=== PATIENT | male | born 1995 | race Caucasian/White ===

== ENCOUNTER 2024-07-01 08:35 | Observation (INO) ==
--- NOTE | 2024-07-01 08:46 | Emergency Department Note ---
History of Present Illness General Chief complaint: Abdominal Pain Stated complaint: ABD PAIN Time Seen by Provider: 07/01/24 08:44 History of Present Illness Maximum Pain Intensity: 9 This is a 28-year-old male that presents to the emergency department via private vehicle with complaints of "right-sided abdominal pain". 4 AM the patient awoke with abrupt onset right-sided abdominal pain. He notes the pain is mainly right upper quadrant but also right flank area. No history of similar. No trauma. No injury. No chest pain. No shortness of breath. Patient notes history of ADD currently medicated. He does take testosterone 500 mg and did use an Anavar preworkout recently. No known drug allergies. No fever. No vomiting. No blood in the stool. Patient otherwise denies any pertinent past medical history, surgeries or allergies. Current pain 05/30. Home Medications Medication Instructions Recorded Confirmed Type Anavar 1 tab PO DIRECTED PRN Other 07/01/24 07/01/24 History dexmethylphenidate 30 mg 30 mg PO QAM 07/01/24 07/01/24 History capsule,extended release [id number] (Focalin XR) testosterone cypionate 1 dose miscellaneous DIRECTED 07/01/24 07/01/24 History PRN Other Allergies Allergy/AdvReac Type Severity Reaction Status Date / Time bee venom protein (honey bee) Allergy Severe Anaphylaxis Unverified 07/01/24 11:39 latex Allergy Intermediate Hives Unverified 07/01/24 11:39 Past Med/Surg History Problem List (Updated 07/01/24 @ 14:32 by Bennie Lozano MD) RUQ pain Epigastric pain Right sided abdominal pain (Acute) Social History Smoking Status: Current every day smoker Second Hand Exposure: Yes; Do You Dip or Chew Tobacco: No; Tobacco Cessation Education Requested by Patient: No Hx Alcohol Use: Yes Hx Substance Use: Yes Last Used Substance: Hours (ago) Substance Use Type Other:: Testosterone shots. Preferred Language: Estonian Communication Ability: Effective Environmental Education Specialist Required: No Beliefs That Will Affect Care: None Current Living Situation: Alone Other Information That Helps Us Care for You: No Feels Safe at Home: Yes Safety Concerns: Feels Safe At This Time Assistive Devices: None Review of Systems A total of 10 systems reviewed and were otherwise negative Physical Exam Vital Signs Vital Signs - 24 hr 07/01/24 08:42 07/01/24 09:08 07/01/24 09:09 Temperature 36.9 C Temperature Source Temporal Artery Scan Pulse Rate 57 L 67 63 Pulse Rate [Apical] Respiratory Rate 19 Respiratory Effort / Characteristics Non-Labored Spontaneous Respiratory Depth Normal Blood Pressure 137/74 Blood Pressure [Right Arm] Blood Pressure Mean 95 Blood Pressure Mean [Right Arm] Blood Pressure Position Sitting Pulse Oximetry 99 95 Oxygen Delivery Method Room Air Room Air Sepsis Recent Fever Within 48 Hours No Sepsis New/Unexplained Change in Mental Status No Sepsis Action Taken by Nursing No Action Required 07/01/24 11:00 Temperature Temperature Source Pulse Rate Pulse Rate [Apical] 49 L Respiratory Rate 16 Respiratory Effort / Characteristics Respiratory Depth Blood Pressure Blood Pressure [Right Arm] 136/60 Blood Pressure Mean Blood Pressure Mean [Right Arm] 85 Blood Pressure Position Pulse Oximetry 97 Oxygen Delivery Method Room Air Sepsis Recent Fever Within 48 Hours Sepsis New/Unexplained Change in Mental Status Sepsis Action Taken by Nursing VITAL SIGNS - Vital signs and nursing notes were reviewed. Stable and afebrile. GENERAL -28-year-old male appearing his stated age who is in no acute distress but appears to be in pain. Communicates well with provider and answers questions appropriately. SKIN - Without rashes. No meningeal or petechial rash. HEAD - NC/AT. EYES - PERRL with EOMI bilaterally. Sclera anicteric. NECK - Neck with FROM. No nuchal rigidity. LUNGS - Chest wall symmetric without accessory muscle use, intercostals retractions, or central cyanosis. Normal vesicular breath sounds CTA B/L. No wheezes, rales, or rhonchi appreciated. CARDIAC - RRR. No murmur, rubs, or gallops appreciated. ABDOMEN - Abdominal contour normal without pulsations or visible masses. BS normoactive all four quadrants. R sided abd ttp noted. EXTREMITIES - No clubbing or peripheral cyanosis. +5/5 strength noted in UE/LE bilaterally. NEUROLOGIC - Cranial nerves grossly intact. Sensory intact to light touch throughout. PSYCH - A&O, and cooperates fully with examiner. Pt is very pleasant and interacts well with examiner. Course Administered Medications Hydromorphone HCl (Hydromorphone Inj 0.5 Mg/0.5 Ml Syr) 0.5 mg IV Q4H PRN PRN Reason: severe pain Stop: 07/15/24 13:51 Last Admin: 07/01/24 14:35 Dose: 0.5 mg Documented By: DANA Pantoprazole Sodium 40 mg/ (Syringe) 10 mls @ 5 mls/min IV BID IFTIKHAR Stop: 07/31/24 12:59 Last Admin: 07/01/24 14:00 Dose: 5 mls/min Documented By: DANA Sodium Chloride (Nss) 1,000 mls @ 100 mls/hr IV .Q10H IFTIKHAR Stop: 07/31/24 13:51 Last Admin: 07/01/24 14:35 Dose: 100 mls/hr Documented By: DANA Discontinued Medications Hydromorphone HCl (Hydromorphone Inj 0.5 Mg/0.5 Ml Syr) 0.5 mg IV NOW STA Stop: 07/01/24 10:11 Last Admin: 07/01/24 10:22 Dose: Not Given Documented By: JAYCOB Hydromorphone HCl (Hydromorphone Inj 0.5 Mg/0.5 Ml Syr) 0.5 mg IV NOW STA Stop: 07/01/24 12:31 Last Admin: 07/01/24 12:38 Dose: 0.5 mg Documented By: VERONICA Acetaminophen (Ofirmev) 1,000 mg in 100 mls @ 400 mls/hr IV NOW STA Stop: 07/01/24 12:44 Last Infusion: 07/01/24 13:07 Dose: Infused Documented By: Admin: 07/01/24 12:38 Dose: 400 mls/hr Documented By: VERONICA Ioversol (Optiray 320 100ml) 94 ml IV ONCE ONE Stop: 07/01/24 09:42 Last Admin: 07/01/24 09:42 Dose: 94 ml Documented By: PHILIP Ketorolac Tromethamine (Ketorolac Tromethamine 15 Mg/Ml Vial) 15 mg IV NOW STA Stop: 07/01/24 11:29 Last Admin: 07/01/24 11:39 Dose: 15 mg Documented By: VERONICA Morphine Sulfate (Morphine Sulfate 4 Mg/Ml 1 Ml Carp\\Vial) 4 mg IV NOW STA Stop: 07/01/24 08:49 Last Admin: 07/01/24 09:01 Dose: 4 mg Documented By: JAYCOB Morphine Sulfate (Morphine Sulfate 4 Mg/Ml 1 Ml Carp\\Vial) 4 mg IV NOW STA Stop: 07/01/24 10:20 Last Admin: 07/01/24 10:22 Dose: 4 mg Documented By: JAYCOB Ondansetron HCl (Ondansetron Inj 2 Mg/Ml 2 Ml Vial) 4 mg IV NOW STA Stop: 07/01/24 08:49 Last Admin: 07/01/24 09:01 Dose: 4 mg Documented By: JAYCOB Medical Decision Making Laboratory Data 07/01/24 09:06 07/01/24 09:06 Lab Results 07/01/24 07/01/24 Range/Units 09:06 10:58 WBC 10.81 H (4.8-10.8) K/ul RBC 5.97 (4.70-6.10) M/uL Hgb 17.4 (14.0-18.0) g/dl Hct 52.5 H (42.0-52.0) % MCV 87.9 (80.0-100.0) fL MCH 29.1 (25.0-34.0) pg MCHC 33.1 (32.0-36.0) g/dL RDW Std Deviation 47.4 H (36.4-46.3) fL RDW Coeff of Lucy 14.8 H (11.5-14.5) % Plt Count 288 (130-400) K/uL MPV 9.2 L (9.4-12.4) fL Immature Gran % (Auto) 0.2 % Neut % (Auto) 71.5 % Lymph % (Auto) 18.9 % [place] % (Auto) 6.2 % Eos % (Auto) 2.9 % Baso % (Auto) 0.3 % Neut # (Auto) 7.74 H (1.40-6.50) K/uL Lymph # (Auto) 2.04 (1.20-3.40) K/uL [place] # (Auto) 0.67 H (0.11-0.59) K/uL Eos # (Auto) 0.31 (0.00-0.50) K/uL Baso # (Auto) 0.03 (0.00-0.20) K/uL Immature Gran # (Auto) 0.02 (0.01-0.20) K/uL Sodium 139 (136-145) mmol/L Potassium 4.9 (3.5-5.1) mmol/L Chloride 104 (98-107) mmol/L Carbon Dioxide 29 (21-32) mmol/L Anion Gap 6 (3-11) BUN 26 H (6-23) mg/dl Creatinine 0.98 (0.6-1.4) mg/dl Est Cr Clr Drug Dosing 115.9 ml/min eGFR 107.72 BUN/Creatinine Ratio 26.5 H (10-20) Glucose 104 H (70-99(Fasting)) mg/dl Calcium 9.2 (8.6-10.3) mg/dl Total Bilirubin 0.5 (0.2-1.0) mg/dl AST 30 (13-39) U/L ALT 24 (7-52) U/L Alkaline Phosphatase 53 (34-104) U/L Total Protein 7.4 (6.0-8.3) gm/dl Albumin 4.5 (3.4-5.0) gm/dl Globulin 2.9 (2.5-4.0) gm/dl Albumin/Globulin Ratio 1.6 (0.9-2) Lipase 20 (11-82) U/L Urine Color Yellow Urine Appearance Clear (Clear) Urine pH 6.5 (4.5-7.5) Ur Specific Hay > 1.045 H (1.000-1.030) Urine Protein 1+ H (Negative) Urine Glucose (UA) Trace H (Negative) Urine Ketones Trace H (Negative) Urine Blood Negative (Negative) Urine Nitrite Negative (Negative) Urine Bilirubin Negative (Negative) Urine Urobilinogen Negative (Negative) Ur Leukocyte Esterase Negative (Negative) Urine WBC (Auto) 0-5 (0-5) /hpf Urine RBC (Auto) >20 H (0-2) /hpf U Hyaline Cast (Auto) 0-2 (0-2) /lpf U Epithel Cells (Auto) 0-2 (0-2) /hpf Urine Bacteria (Auto) None Seen (None Seen) Imaging Data Radiologist's Impression: Abdomen/Pelvis CT 07/01/24 08:[address] WITH IV CONTRAST CT DOSE: 1114.31 mGy.cm HISTORY: Acute generalized abdominal pain abdominal pain, abrupt onset 4am TECHNIQUE: Multiaxial CT images of the abdomen and pelvis were performed following the IV administration of 94 cc of Optiray, A dose lowering technique was utilized adhering to the principles of ALARA. COMPARISON STUDY: None. FINDINGS: The lung bases are clear. The liver, spleen, gallbladder, pancreas, kidneys, and adrenal glands are within normal limits. Noninflamed appendix. There are a few scattered mid abdominal small bowel air-fluid levels. Additional nondilated fluid-filled loops of large bowel are also noted. No bowel wall thickening or obstruction. The pelvic organs are unremarkable. 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 No suspicious lytic or blastic osseous lesions. IMPRESSION: 1. No bowel obstruction or bowel wall thickening. 2. Normal appendix. 3. 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 ACT 112: Negative or not required by law. The above report was generated using voice recognition software. It may contain grammatical, syntax or spelling errors. Electronically signed by: Yuan Cochran M.D. 07/01/2024 10:20 AM Gallbladder Ultrasound 07/01/24 10:47 ABDOMINAL ULTRASOUND, RIGHT UPPER QUADRANT HISTORY: Acute right upper quadrant abdominal pain RUQ abd pain. COMPARISON: CT same day FINDINGS: Pancreas: The pancreas demonstrates a normal echotexture. Liver: Unremarkable. Gallbladder: No gallbladder wall thickening. No gallstones. CBD: 4 mm Right kidney: No hydronephrosis. IMPRESSION: No significant abnormality identified within the right upper quadrant. ACT 112: Negative or not required by law. Electronically signed by: Yuan Cocrhan M.D. 07/01/2024 11:39 AM Chest X-Ray 07/01/24 10:50 XR chest 1V portable HISTORY: 28 years-old Male RUQ abd pain acute right upper quadrant abdominal pain COMPARISON: None TECHNIQUE: AP view the chest FINDINGS: Cardiomediastinal and hilar silhouettes are within normal limits. No pneumothorax, pleural effusion or airspace consolidation. The bones appear normal. IMPRESSION: Normal exam. ACT 112: Negative or not required by law. The above report was generated using voice recognition software. It may contain grammatical, syntax or spelling errors. Electronically signed by: Yuan Cochran M.D. 07/01/2024 11:13 AM [facility] Narrative Patient was seen and evaluated as above in room B03b. Review was performed of triage nursing notes and vital signs. I did review pertinent previous visits and patient history. After obtaining a thorough history and physical examination the above work up was performed. Patient presents to us today for evaluation of right sided abdominal pain. Current pain 9/10. IV access with established. Labs were drawn. CT scan of the abdomen/pelvis was ordered. Patient medicated with IV morphine for pain, Zofran for nausea. CT scan results as above. This was essentially negative for acute process. Gallbladder ultrasound was then performed and was essentially negative. Labs reveal mild leukocytosis. No concerning anemia. No emergent metabolic disturbance. Lipase within normal range. Urinalysis reveals some red cells but no infection. Patient's pain continued despite IV analgesia here. At this time we will proceed with further evaluation and management in the inpatient setting. Please refer to further documentation regarding his stay. GCS: 15 In the evaluation and treatment of this patient the following differential diagnoses were entertained: Diverticulitis, acute cholecystitis, kidney stone, gastritis, among others. Impression & Plan Right sided abdominal pain Discharge Plan Visit Data Chief Complaint: Abdominal Pain Stated Complaint: ABD PAIN ED Provider: Jhonatan Garcia ED Midlevel Provider: Dejan Brewster Discharge Problem: Right sided abdominal pain Patient Disposition: Admitted As Inpatient Condition: Good Discharge Instructions Interventions: ED Discharge Assessment Last Done: 07/01/24 13:35
[2024-07-01] MEDS ORDERED: ADVANCED PROBIOTIC 625 MG CAPSULE PO SCH ×2 (09:00→18:30)
[2024-07-01] MEDS: MoRPHine SULFATE 4 MG/ML 1 ML CARP\\VIAL IV STA ×2 (09:01→10:22)
[2024-07-01] MEDS: ONDANSETRON INJ 2 MG/ML 2 ML VIAL IV STA (09:01)
[2024-07-01 09:22] LABS: Basophils # (auto) 0.03 K/uL (0.00-0.20); Basophils % (auto) 0.3 %; Eosinophils # (auto) 0.31 K/uL (0.00-0.50); Eosinophils % (auto) 2.9 %; Hematocrit (blood only) 52.5 % (42.0-52.0); Hemoglobin 17.4 g/dl (14.0-18.0); Immature Granulocytes # (auto) 0.02 K/uL (0.01-0.20); Immature Granulocytes % (auto) 0.2 %; Lymphocytes # (auto) 2.04 K/uL (1.20-3.40); Lymphocytes % (auto) 18.9 %; Mean Corpuscular Hemoglobin 29.1 pg (25.0-34.0); Mean Corpuscular Hgb Conc 33.1 g/dL (32.0-36.0); Mean Corpuscular Volume 87.9 fL (80.0-100.0); Mean Platelet Volume 9.2 fL (9.4-12.4); Monocytes # (auto) 0.67 K/uL (0.11-0.59); Monocytes % (auto) 6.2 %; Neutrophils # (auto) 7.74 K/uL (1.40-6.50); Neutrophils % (auto) 71.5 %; Platelet Count 288 K/uL (130-400); RDW Coefficient of Variation 14.8 % (11.5-14.5); RDW Standard Deviation 47.4 fL (36.4-46.3); Red Blood Count 5.97 M/uL (4.70-6.10); White Blood Count 10.81 K/ul (4.8-10.8)
[2024-07-01 09:34] LABS: Albumin Globulin Ratio 1.6 (0.9-2); Albumin Level 4.5 gm/dl (3.4-5.0); BUN Creatinine Ratio 26.5 (10-20); Bilirubin,Total 0.5 mg/dl (0.2-1.0); Calcium 9.2 mg/dl (8.6-10.3); Creatinine Clr Calc Pharmacy 115.9 ml/min; Globulin 2.9 gm/dl (2.5-4.0); Potassium 4.9 mmol/L (3.5-5.1); Total Protein 7.4 gm/dl (6.0-8.3)
[2024-07-01] MEDS: OPTIRAY 320 100ml IV ONE (09:42)
[2024-07-01] MEDS: HYDROmorphone INJ 0.5 MG/0.5 ML SYR IV STA ×2 (10:22→12:38)
--- NOTE | 2024-07-01 10:22 | CT Scan Report ---
ABDOMEN AND PELVIS CT WITH IV CONTRAST CT DOSE: 1114.31 mGy.cm HISTORY: Acute generalized abdominal pain abdominal pain, abrupt onset 4am TECHNIQUE: Multiaxial CT images of the abdomen and pelvis were performed following the IV administrat ion of 94 cc of Optiray, A dose lowering technique was utilized adhering to the principles of ALARA. COMPARISON STUDY: None. FINDINGS: The lung bases are clear. The liver, spleen, gallbladder, pancreas, kidneys, and adrenal gl ands are within normal limits. Noninflamed appendix. There are a few scattered mid abdominal small serina wel air-fluid levels. Additional nondilated fluid-filled loops of large bowel are also noted. No isrrael l wall thickening or obstruction. The pelvic organs are unremarkable. 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 No suspicious lytic or blastic osseous lesions. IMPRESSION: 1. No bowel obstruction or bowel wall thickening. 2. Normal appendix. 3. 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 ACT 112: Negative or not required by law. The above report was generated using voice recognition software. It may contain grammatical, syntax o r spelling errors. Electronically signed by: Yuan Cochran M.D. 07/01/2024 10:20 AM
--- NOTE | 2024-07-01 11:14 | XRay Report ---
XR chest 1V portable HISTORY: 28 years-old Male RUQ abd pain acute right upper quadrant abdominal pain COMPARISON: None TECHNIQUE: AP view the chest FINDINGS: Cardiomediastinal and hilar silhouettes are within normal limits. No pneumothorax, pleural effusion o r airspace consolidation. The bones appear normal. IMPRESSION: Normal exam. ACT 112: Negative or not required by law. The above report was generated using voice recognition software. It may contain grammatical, syntax o r spelling errors. Electronically signed by: Yuan Cochran M.D. 07/01/2024 11:13 AM
[2024-07-01 11:26] LABS: Appearance Urine Clear (Clear); Bacteria Urine Automated None Seen (None Seen); Bilirubin Urine Negative (Negative); Blood Urine Negative (Negative); Cast Urine Automated 0-2 /lpf (0-2); Color Urine Yellow; Epithelial Cell Urine Auto 0-2 /hpf (0-2); Glucose Urine UA Trace (Negative); Ketones Urine Trace (Negative); Leukocyte Esterase Urine Negative (Negative); Nitrite Urine Negative (Negative); Protein Urine 1+ (Negative); RBC Urine Automated >20 /hpf (0-2); Specific Gravity Urine > 1.045 (1.000-1.030); Urobilinogen Urine Negative (Negative); WBC Urine Automated 0-5 /hpf (0-5); pH Urine 6.5 (4.5-7.5)
[2024-07-01] MEDS: KETOROLAC TROMETHAMINE 15 MG/ML VIAL IV STA (11:39)
--- NOTE | 2024-07-01 11:40 | Ultrasound Report ---
ABDOMINAL ULTRASOUND, RIGHT UPPER QUADRANT HISTORY: Acute right upper quadrant abdominal pain RUQ abd pain. COMPARISON: CT same day FINDINGS: Pancreas: The pancreas demonstrates a normal echotexture. Liver: Unremarkable. Gallbladder: No gallbladder wall thickening. No gallstones. CBD: 4 mm Right kidney: No hydronephrosis. IMPRESSION: No significant abnormality identified within the right upper quadrant. ACT 112: Negative or not required by law. Electronically signed by: Yuan Cochran M.D. 07/01/2024 11:39 AM
[2024-07-01] MEDS: ACETAMINOPHEN 1,000 MG/100 ML VIAL IV STA (12:38)
[2024-07-01] MEDS ORDERED: ONDANSETRON INJ 2 MG/ML 2 ML VIAL IV PRN (13:52)
[2024-07-01] MEDS ORDERED: ACETAMINOPHEN 1,000 MG/100 ML VIAL IV PRN (13:52)
[2024-07-01] MEDS: PANTOprazole 40 MG in SYRINGE 0 ML IV SCH (14:00)
[2024-07-01] MEDS: HYDROmorphone INJ 0.5 MG/0.5 ML SYR IV PRN (14:35)
[2024-07-01] MEDS: SODIUM CHLORIDE 0.9% 1,000 ML IV SCH (14:35)
--- NOTE | 2024-07-01 14:35 | History & Physical Report ---
Date of Service July 01, 2024 Assessment & Plan (1) Epigastric pain: (2) RUQ pain: Plan: 28 year old male with history of ADD, GERD presenting with severe epigastric, RUQ pain which started at 4 am this morning. EPIGASTRIC, RUQ PAIN unclear etiology (+) tenderness on epigastric and RUQ LFTs, Lipase normal CT abd/pelvis, GB US: unrevealing required multiple doses of Morphine and Dilaudid at the ER, minimal relief r/o Acute Cholecystits? HIDA scan NPO, IV fluids General Surgery consult Gastritis, Peptic Ulcer Disease? has history of GERD denies frequent NSAID use Protonix 40mg IV BID GI consult from prolonged Cannabis use? if pain continues and negative work up, will consider Droperidol IV for now Dilauid 0.5mg IV q4h prn, Ofirmev 1g q8h PRN Passed Kidney stone? UA (+) RBCs, protein no history of Nephrolithiasis will need repeat UA check Lactic acid to r/o Mesenteric Ischemia check D dimer to r/o PE History of ADD continue Dexmethylphenidate GERD on Prilosec at home Protonix IV for now Other medications: on Testosterone, Anavar for weightlifting- no prescribed by MD as per patient DVT prophylaxis SCDs for now in light of possible procedures Full Code Disposition lives at home change to admit status if staying for >24 hours permission obtained from patient if his grandmother can stay at the bedside for history, PE and evaluation, patient agreed plan of care discussed with patient and his gradnmother in detail and at length all questions answered they are understanding, agreeable, comfortable with the plan of care Admission and Anticipated Discharge Date Admission Date: July 01, 2024 History of Present Illness Chief Complaint: 28 year old male with history of ADD, GERD presenting with severe epigastric, RUQ pain which started at 4 am this morning. Patient was doing fine until yesterday when he started to be feel fatigued. This morning around 4am, patient developed severe epigastric pain- pressure, radiating to RUQ and central abdomen. No associated nausea, fever/chills. Reports daily BMs, no melena, hematochezia No urinary symptoms, hematuria Patient takes Dexmethylphenidate for ADD. He has been taking testosterone for 4 months, and Anavar for 2 weeks- not prescribed by MD. He also smokes marijuana daily for many years. At the ER, patient noted to have stable VS. LFTs unremarkable Lipase normal CT abd/pelvis also negative for obstruction, GB pathology GB US: no signs of acute cholecystitis CXR: unremarkable He has required multiple doses of Morphine and Dilaudid with no improvement of symptoms. On exam, patient still reports severe epigastric, RUQ pain but no active nausea. no chest pain, dyspnea, palpitations, dizziness Primary Care Provider: Antonio Ng MD 28 year old male with history of ADD, GERD presenting with severe epigastric, RUQ pain which at 4 am this morning. Patient was doing fine until yesterday when he started to be feel fatigued. This morning around 4am, patient developed severe epigastric pain- pressure, radiating to RUQ and central abdomen. No associated nausea, fever/chills. Reports daily BMs, no melena, hematochezia No urinary symptoms, hematuria Patient takes Dexmethylphenidate for ADD. He has been taking testosterone for 4 months, and Anavar for 2 weeks- not prescribed by MD. He also smokes marijuana daily for many years. At the ER, patient noted to have stable VS. LFTs unremarkable Lipase normal CT abd/pelvis also negative for obstruction, GB pathology GB US: no signs of acute cholecystitis CXR: unremarkable He has required multiple doses of Morphine and Dilaudid with no improvement of symptoms. On exam, patient still reports severe epigastric, RUQ pain but no active nausea. no chest pain, dyspnea, palpitations, dizziness Allergies Allergy/AdvReac Type Severity Reaction Status Date / Time bee venom protein (honey bee) Allergy Severe Anaphylaxis Unverified 07/01/24 11:39 latex Allergy Intermediate Hives Unverified 07/01/24 11:39 Home Medications Medication Instructions Recorded Confirmed Type Anavar 1 tab PO DIRECTED PRN Other 07/01/24 07/01/24 History dexmethylphenidate 30 mg 30 mg PO QAM 07/01/24 07/01/24 History capsule,extended release [id number] (Focalin XR) testosterone cypionate 1 dose miscellaneous DIRECTED 07/01/24 07/01/24 History PRN Other Past Med/Surg History Problem List (Updated 07/01/24 @ 14:32 by Bennie Lozano MD) RUQ pain Epigastric pain Right sided abdominal pain (Acute) Social History Smoking Status: Current every day smoker Second Hand Exposure: Yes; Do You Dip or Chew Tobacco: No; Tobacco Cessation Education Requested by Patient: No Hx Alcohol Use: Yes Hx Substance Use: Yes Last Used Substance: Hours (ago) Substance Use Type Other:: Testosterone shots. Preferred Language: Cuban Communication Ability: Effective Food Product Inspector Required: No Beliefs That Will Affect Care: None Current Living Situation: Alone Other Information That Helps Us Care for You: No Feels Safe at Home: Yes Safety Concerns: Feels Safe At This Time Assistive Devices: None Review of Systems Review of Systems: all noted and negative except for above Physical Exam Physical Exam: General- oriented x 3, not in distress, speaks in sentences with no effort or accessory muscle use Head- atraumatic Eyes- PERRL, EOMI, anicteric ENT- oropharynx clear Neck- supple, no JVD, no adenopathy, no thyromegaly; carotids +2/2, no bruits appreciated Lungs- clear to auscultation bilaterally, no rales/wheezes Heart- normal rate, regular rhythm; no murmur, no gallop, no rub appreciated Abdomen- normal bowel sounds, nondistended, soft, (+) epigastric and RUQ tenderness- moderate, no masses or hepatosplenomegaly Extremities- no pretibial edema, no calf tenderness; peripheral pulses intact Neuro- alert, oriented x 3; CN 2-12 grossly intact; motor 5/5 bilaterally;sensation 100% on all extremities; no other gross focal neurologic deficits Skin- warm & dry Results & Data Results & Data Vital Signs (Past 12 Hours) Vital Signs Temp Pulse Pulse Resp BP BP Pulse Ox 07/01/24 13:45 36.4 C 77 19 157/97 H 99 07/01/24 13:35 07/01/24 13:19 56 L 07/01/24 13:00 52 L 16 141/71 H 96 07/01/24 11:00 49 L 16 136/60 97 07/01/24 09:09 63 95 07/01/24 09:08 67 07/01/24 08:42 36.9 C 57 L 19 137/74 99 O2 Del Method 07/01/24 13:45 Room Air 07/01/24 13:35 Room Air 07/01/24 13:19 07/01/24 13:00 Room Air 07/01/24 11:00 Room Air 07/01/24 09:09 Room Air 07/01/24 09:08 07/01/24 08:42 Room Air all noted and reviewed including below
[2024-07-01 15:28] LABS: D Dimer < 190 ug/L FEU (0-500)
[2024-07-01 15:29] VITALS: BP 130/71; RESP 18; TEMP 98.1; O2SAT 97
--- NOTE | 2024-07-01 17:35 | Surgery Consultation ---
Date of Consultation July 01, 2024 Assessment & Plan (1) RUQ pain: 28-year-old man with right upper quadrant pain that is subsequently resolved. CT scan and ultrasound were negative for cholecystitis or gallstones or appendicitis. Laboratory evaluation was normal, upper limit of normal white count at 10. He currently has no pain. no surgical indications at this time. Advance diet as tolerated. If he tolerates a diet he may be discharged to home. He will need outpatient GI workup, as well as possible outpatient HIDA scan. We will sign off. Please call with any questions or concerns. History of Present Illness Reason for Consultation: Right upper quadrant pain Requesting Physician: Bennie Lozano MD Attending Physician: Bennie Lozano MD History of Present Illness 28-year-old gentleman presents with 1 day history of severe right upper quadrant and epigastric pain starting in the morning. This persisted until about 2:00 this afternoon and then resolved. He does not have any pain currently. He did have Dilaudid at 230. He denies fevers or chills. He denies nausea or vomiting. He is quite hungry and threatening to leave AMA if he does not eat. Allergies Allergy/AdvReac Type Severity Reaction Status Date / Time bee venom protein (honey bee) Allergy Severe Anaphylaxis Unverified 07/01/24 11:39 latex Allergy Intermediate Hives Unverified 07/01/24 11:39 Home Medications Medication Instructions Recorded Confirmed Type Anavar 1 tab PO DIRECTED PRN Other 07/01/24 07/01/24 History dexmethylphenidate 30 mg 30 mg PO QAM 07/01/24 07/01/24 History capsule,extended release [id number] (Focalin XR) testosterone cypionate 1 dose miscellaneous DIRECTED 07/01/24 07/01/24 History PRN Other Patient History Social History Smoking Status: Current every day smoker Second Hand Exposure: Yes; Do You Dip or Chew Tobacco: No; Tobacco Cessation Education Requested by Patient: No Hx Alcohol Use: Yes Hx Substance Use: Yes Last Used Substance: Hours (ago) Substance Use Type Other:: Testosterone shots. Preferred Language: Ethiopian Communication Ability: Effective Oil Agent Required: No Beliefs That Will Affect Care: None Current Living Situation: Alone Other Information That Helps Us Care for You: No Feels Safe at Home: Yes Safety Concerns: Feels Safe At This Time Assistive Devices: None Review of Systems Review of Systems: All systems reviewed & are unremarkable except as noted in HPI & below Physical Exam Constitutional: WD/WN, vitals as above Eyes: PERRL, conjunctivae normal, anicteric sclerae Neck: trachea midline, no thyromegaly Respiratory: normal respiratory effort; no respiratory distress and no labored breathing Cardiovascular: Rate/Rhythm: regular rate and regular rhythm Gastrointestinal (Abdomen): Inspection/Auscultation: abdomen normal to inspection; abdomen not distended Percussion/Palpation: abdomen soft; abdomen nontender, no guarding and abdomen not rigid Skin: no rashes, warm and dry Psychiatric: A+Ox3, euthymic affect Results & Data Vital Signs (Past 12 Hours) Vital Signs Temp Pulse Pulse Pulse Resp BP BP 07/01/24 15:28 36.7 C 54 L 18 130/71 07/01/24 13:45 36.4 C 77 19 157/97 H 07/01/24 13:35 07/01/24 13:19 56 L 07/01/24 13:00 52 L 16 141/71 H 07/01/24 11:00 49 L 16 136/60 07/01/24 09:09 63 07/01/24 09:08 67 07/01/24 08:42 36.9 C 57 L 19 137/74 Pulse Ox O2 Del Method 07/01/24 15:28 97 Room Air 07/01/24 13:45 99 Room Air 07/01/24 13:35 Room Air 07/01/24 13:19 07/01/24 13:00 96 Room Air 07/01/24 11:00 97 Room Air 07/01/24 09:09 95 Room Air 07/01/24 09:08 07/01/24 08:42 99 Room Air Laboratory Results 07/01/24 07/01/24 07/01/24 Range/Units 14:36 10:58 09:06 WBC 10.81 H (4.8-10.8) K/ul RBC 5.97 (4.70-6.10) M/uL Hgb 17.4 (14.0-18.0) g/dl Hct 52.5 H (42.0-52.0) % MCV 87.9 (80.0-100.0) fL MCH 29.1 (25.0-34.0) pg MCHC 33.1 (32.0-36.0) g/dL RDW Std Deviation 47.4 H (36.4-46.3) fL RDW Coeff of Lucy 14.8 H (11.5-14.5) % Plt Count 288 (130-400) K/uL MPV 9.2 L (9.4-12.4) fL Immature Gran % (Auto) 0.2 % Neut % (Auto) 71.5 % Lymph % (Auto) 18.9 % [place] % (Auto) 6.2 % Eos % (Auto) 2.9 % Baso % (Auto) 0.3 % Neut # (Auto) 7.74 H (1.40-6.50) K/uL Lymph # (Auto) 2.04 (1.20-3.40) K/uL [place] # (Auto) 0.67 H (0.11-0.59) K/uL Eos # (Auto) 0.31 (0.00-0.50) K/uL Baso # (Auto) 0.03 (0.00-0.20) K/uL Immature Gran # (Auto) 0.02 (0.01-0.20) K/uL D-Dimer < 190 (0-500) ug/L FEU Sodium 139 (136-145) mmol/L Potassium 4.9 (3.5-5.1) mmol/L Chloride 104 (98-107) mmol/L Carbon Dioxide 29 (21-32) mmol/L Anion Gap 6 (3-11) BUN 26 H (6-23) mg/dl Creatinine 0.98 (0.6-1.4) mg/dl Est Cr Clr Drug Dosing 115.9 ml/min eGFR 107.72 BUN/Creatinine Ratio 26.5 H (10-20) Glucose 104 H (70-99(Fasting)) mg/dl Lactate 0.9 (0.4-2.0) mmol/L Calcium 9.2 (8.6-10.3) mg/dl Total Bilirubin 0.5 (0.2-1.0) mg/dl AST 30 (13-39) U/L ALT 24 (7-52) U/L Alkaline Phosphatase 53 (34-104) U/L Total Protein 7.4 (6.0-8.3) gm/dl Albumin 4.5 (3.4-5.0) gm/dl Globulin 2.9 (2.5-4.0) gm/dl Albumin/Globulin Ratio 1.6 (0.9-2) Lipase 20 (11-82) U/L Urine Color Yellow Urine Appearance Clear (Clear) Urine pH 6.5 (4.5-7.5) Ur Specific [place] > 1.045 H (1.000-1.030) Urine Protein 1+ H (Negative) Urine Glucose (UA) Trace H (Negative) Urine Ketones Trace H (Negative) Urine Blood Negative (Negative) Urine Nitrite Negative (Negative) Urine Bilirubin Negative (Negative) Urine Urobilinogen Negative (Negative) Ur Leukocyte Esterase Negative (Negative) Urine WBC (Auto) 0-5 (0-5) /hpf Urine RBC (Auto) >20 H (0-2) /hpf U Hyaline Cast (Auto) 0-2 (0-2) /lpf U Epithel Cells (Auto) 0-2 (0-2) /hpf Urine Bacteria (Auto) None Seen (None Seen) Diagnostic Findings ABDOMINAL ULTRASOUND, RIGHT UPPER QUADRANT HISTORY: Acute right upper quadrant abdominal pain RUQ abd pain. COMPARISON: CT same day FINDINGS: Pancreas: The pancreas demonstrates a normal echotexture. Liver: Unremarkable. Gallbladder: No gallbladder wall thickening. No gallstones. CBD: 4 mm Right kidney: No hydronephrosis. IMPRESSION: No significant abnormality identified within the right upper quadrant. ACT 112: Negative or not required by law. Electronically signed by: Yuan Cochran M.D. 07/01/2024 11:39 AM ABDOMEN AND PELVIS CT WITH IV CONTRAST CT DOSE: 1114.31 mGy.cm HISTORY: Acute generalized abdominal pain abdominal pain, abrupt onset 4am TECHNIQUE: Multiaxial CT images of the abdomen and pelvis were performed following the IV administration of 94 cc of Optiray, A dose lowering technique was utilized adhering to the principles of ALARA. COMPARISON STUDY: None. FINDINGS: The lung bases are clear. The liver, spleen, gallbladder, pancreas, kidneys, and adrenal glands are within normal limits. Noninflamed appendix. There are a few scattered mid abdominal small bowel air-fluid levels. Additional nondilated fluid-filled loops of large bowel are also noted. No bowel wall thickening or obstruction. The pelvic organs are unremarkable. 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 No suspicious lytic or blastic osseous lesions. IMPRESSION: 1. No bowel obstruction or bowel wall thickening. 2. Normal appendix. 3. 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 ACT 112: Negative or not required by law. The above report was generated using voice recognition software. It may contain grammatical, syntax or spelling errors. Electronically signed by: Yuan Cochran M.D. 07/01/2024 10:20 AM
[2024-07-01] MEDS ORDERED: 4.5GM X1 IV SCH (18:35)
[2024-07-01 19:06] VITALS: PULSE 77
--- NOTE | 2024-07-01 19:07 | Discharge Summary ---
Discharge Summary Date of Service July 01, 2024 Principal Dx & Hospital Course #1 = Principal Diagnosis (1) Epigastric pain: (2) RUQ pain: 28 year old male with history of ADD, GERD presenting with severe epigastric, RUQ pain which started at 4 am this morning. EPIGASTRIC, RUQ PAIN unclear etiology (+) tenderness on epigastric and RUQ LFTs, Lipase normal CT abd/pelvis, GB US: unrevealing required multiple doses of Morphine and Dilaudid at the ER, minimal relief r/o Acute Cholecystits? HIDA scan ordered NPO, IV fluids General Surgery consult Gastritis, Peptic Ulcer Disease? has history of GERD denies frequent NSAID use Protonix 40mg IV BID GI consult from prolonged Cannabis use? if pain continues and negative work up, will consider Droperidol IV for now Dilauid 0.5mg IV q4h prn, Ofirmev 1g q8h PRN Passed Kidney stone? UA (+) RBCs, protein no history of Nephrolithiasis will need repeat UA check Lactic acid to r/o Mesenteric Ischemia: negative check D dimer to r/o PE: negative 7 PM: HIDA scan unable to be performed till Wednesday Evaluated by general surgeon Dr. Keita, acute cholecystitis felt to be unlikely, outpatient HIDA scan, advance diet gradually, and can be discharged home from his standpoint Patient requesting to be discharged per RN Seen and reevaluated at the bedside with his grandmother States his pain has completely resolved, feels much better compared to earlier today (Received Protonix IV, Tylenol IV 1 g, Dilaudid 0.5 mg before transfer to Med[facility] room from the ER) Tolerating diet well Requesting for discharge Advised to stay 1 more night for closer observation but patient prefers to go home and will come back if with return of symptoms He said he also discussed this with his mom who is an RN and they are comfortable with this plan Discharge plan: Change Prilosec to Protonix x 2 weeks Outpatient HIDA scan PCP follow-up next week Abnormal CT finding Minimal AVN of the left femoral head seen on CT abd/pelvis further work up and follow up as outpatient History of ADD continue Dexmethylphenidate GERD on Prilosec at home Changed to Protonix 40 mg p.o. daily times at least 2 weeks, then reevaluate Other medications: on Testosterone, Anavar for weightlifting- not prescribed by MD as per patient -- Advised to discuss with PCP regarding testosterone and Anavar before proceeding to take these medications as he needs to be medically supervised while on these medications Patient verbalized understanding and agreement Disposition d/c home PCP ff up in 1 week Notes For Next Care Provider Medication Changes From Visit Prilosec changed to Protonix Admission HPI Per Admitting Provider 28 year old male with history of ADD, GERD presenting with severe epigastric, RUQ pain which at 4 am this morning. Patient was doing fine until yesterday when he started to be feel fatigued. This morning around 4am, patient developed severe epigastric pain- pressure, radiating to RUQ and central abdomen. No associated nausea, fever/chills. Reports daily BMs, no melena, hematochezia No urinary symptoms, hematuria Patient takes Dexmethylphenidate for ADD. He has been taking testosterone for 4 months, and Anavar for 2 weeks- not prescribed by MD. He also smokes marijuana daily for many years. At the ER, patient noted to have stable VS. LFTs unremarkable Lipase normal CT abd/pelvis also negative for obstruction, GB pathology GB US: no signs of acute cholecystitis CXR: unremarkable He has required multiple doses of Morphine and Dilaudid with no improvement of symptoms. On exam, patient still reports severe epigastric, RUQ pain but no active nausea. no chest pain, dyspnea, palpitations, dizziness Admission Exam Per Admitting Provider General- oriented x 3, not in distress, speaks in sentences with no effort or accessory muscle use Head- atraumatic Eyes- PERRL, EOMI, anicteric ENT- oropharynx clear Neck- supple, no JVD, no adenopathy, no thyromegaly; carotids +2/2, no bruits appreciated Lungs- clear to auscultation bilaterally, no rales/wheezes Heart- normal rate, regular rhythm; no murmur, no gallop, no rub appreciated Abdomen- normal bowel sounds, nondistended, soft, (+) epigastric and RUQ tenderness- moderate, no masses or hepatosplenomegaly Extremities- no pretibial edema, no calf tenderness; peripheral pulses intact Neuro- alert, oriented x 3; CN 2-12 grossly intact; motor 5/5 bilaterally;sensation 100% on all extremities; no other gross focal neurologic deficits Skin- warm & dry Discharge Exam General- oriented x 3, not in distress, speaks in sentences with no effort or accessory muscle use Eyes- anicteric Neck- no JVD Lungs- clear breath sounds bilaterally, no rales/wheezes Heart- normal rate, regular rhythm; no murmurs Abdomen- normal bowel sounds, nondistended, soft, nontender Extremities- no pretibial edema, no calf tenderness Neuro- alert, oriented x 3; no gross focal neurologic deficits Skin- warm & dry Updated Medication List Medication Instructions Recorded Confirmed Type Anavar 1 tab PO DIRECTED PRN Other 07/01/24 07/01/24 History dexmethylphenidate 30 mg 30 mg PO QAM 07/01/24 07/01/24 History capsule,extended release -01 (Focalin XR) pantoprazole 40 mg tablet,delayed 40 mg PO DAILY 14 days #14 tabs 07/01/24 Rx release (Protonix) testosterone cypionate 1 dose miscellaneous DIRECTED 07/01/24 07/01/24 History PRN Other Hospital Stay Data Consultations 07/01/24 11:51 ED Decision to Admit Stat 07/01/24 13:52 Consult General Surgery Routine 07/01/24 14:23 Consult Gastroenterology Routine Diagnostic Imagining Performed 07/01/24 08:45 CT abd pelvis IV con only Stat ABDOMEN AND PELVIS CT WITH IV CONTRAST CT DOSE: 1114.31 mGy.cm HISTORY: Acute generalized abdominal pain abdominal pain, abrupt onset 4am TECHNIQUE: Multiaxial CT images of the abdomen and pelvis were performed following the IV administration of 94 cc of Optiray, A dose lowering technique was utilized adhering to the principles of ALARA. COMPARISON STUDY: None. FINDINGS: The lung bases are clear. The liver, spleen, gallbladder, pancreas, kidneys, and adrenal glands are within normal limits. Noninflamed appendix. There are a few scattered mid abdominal small bowel air-fluid levels. Additional nondilated fluid-filled loops of large bowel are also noted. No bowel wall thickening or obstruction. The pelvic organs are unremarkable. 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 No suspicious lytic or blastic osseous lesions. IMPRESSION: 1. No bowel obstruction or bowel wall thickening. 2. Normal appendix. 3. 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 ACT 112: Negative or not required by law. The above report was generated using voice recognition software. It may contain grammatical, syntax or spelling errors. Electronically signed by: Yuan Cochran M.D. 07/01/2024 10:20 AM 07/01/24 10:47 US gallbladder Stat ABDOMINAL ULTRASOUND, RIGHT UPPER QUADRANT HISTORY: Acute right upper quadrant abdominal pain RUQ abd pain. COMPARISON: CT same day FINDINGS: Pancreas: The pancreas demonstrates a normal echotexture. Liver: Unremarkable. Gallbladder: No gallbladder wall thickening. No gallstones. CBD: 4 mm Right kidney: No hydronephrosis. IMPRESSION: No significant abnormality identified within the right upper quadrant. ACT 112: Negative or not required by law. Electronically signed by: Yuan Cochran M.D. 07/01/2024 11:39 AM XR chest 1V portable HISTORY: 28 years-old Male RUQ abd pain acute right upper quadrant abdominal pain COMPARISON: None TECHNIQUE: AP view the chest FINDINGS: Cardiomediastinal and hilar silhouettes are within normal limits. No pneumothorax, pleural effusion or airspace consolidation. The bones appear normal. IMPRESSION: Normal exam. ACT 112: Negative or not required by law. The above report was generated using voice recognition software. It may contain grammatical, syntax or spelling errors. Electronically signed by: Yuan Cochran M.D. 07/01/2024 11:13 AM Pending Results Patient Have Any Pending Studies at Discharge: No Discharge Instructions Given to Patient (Per Discharging Provider) PLEASE REFER TO YOUR NEW MEDICATION LIST AND FOLLOW INSTRUCTIONS CAREFULLY. YOUR NEW MEDICATIONS INCLUDE: Change Prilosec to Protonix daily-antacid for possible gastritis or peptic ulcer disease. Do not take medications under the class of NSAIDs including ibuprofen, naproxen, etc. No alcohol/smoking. Drink plenty of water to flush out IV contrast received today. Continue with soft, low-fat, nongreasy diet. PLEASE CALL YOUR PRIMARY CARE PHYSICIAN OR RETURN TO THE ER IF WITH WORSENING OF SYMPTOMS, INCLUDING Recurrence of abdominal pain, nausea or vomiting, fevers or chills, weakness, etc. FOLLOW UP WITH PRIMARY CARE PHYSICIAN early next week. The clinic should be calling you soon for the appointment schedule. If you have not heard from them on Wednesday, please call PCP office for an appointment. Total Time Total Time Spent Total Time Spent (In Minutes): >30 minutes
[2024-07-02] MEDS ORDERED: PIPERACILLIN/TAZOBACTAM 4.5 GM/100 ML BAG IV SCH
--- NOTE | 2024-07-02 12:28 | Electrocardiogram Report ---
Test Reason : Blood Pressure : */* mmHG Vent. Rate : 52 BPM Atrial Rate : 52 BPM P-R Int : 120 ms QRS Dur : 98 ms QT Int : 420 ms P-R-T Axes : 68 56 15 degrees QTcB Int : 390 ms Sinus bradycardia with Premature atrial complexes Poor R wave progression, consider anterior CT vs. lead placement vs. LVH Abnormal ECG No previous ECGs available Confirmed by Jhonatan Schmidt ([id number]) on 07/02/2024 12:27:33 PM Referred By: REFERRED SELF Confirmed By: Jhonatan Schmidt
== END 2024-07-01 19:17 | disposition home or self-care (01) ==
LOC: 3N 08:35 → ED 08:35 → 3N 13:35

== ENCOUNTER 2024-07-02 03:33 | Inpatient (IN) ==
[2024-07-02] MEDS: HYDROmorphone INJ 0.5 MG/0.5 ML SYR IV STA ×2 (04:36→05:41)
[2024-07-02] MEDS: FAMOTIDINE 20MG IV PUSH 20 MG/5 ML SYR IV STA ×2 (04:36→08:25)
[2024-07-02] MEDS: ONDANSETRON INJ 2 MG/ML 2 ML VIAL IV STA (04:36)
[2024-07-02 04:57] LABS: Basophils # (auto) 0.02 K/uL (0.00-0.20); Basophils % (auto) 0.2 %; Eosinophils # (auto) 0.19 K/uL (0.00-0.50); Eosinophils % (auto) 1.5 %; Hematocrit (blood only) 50.5 % (42.0-52.0); Hemoglobin 16.6 g/dl (14.0-18.0); Immature Granulocytes # (auto) 0.05 K/uL (0.01-0.20); Immature Granulocytes % (auto) 0.4 %; Lymphocytes # (auto) 2.26 K/uL (1.20-3.40); Lymphocytes % (auto) 18.1 %; Mean Corpuscular Hemoglobin 28.6 pg (25.0-34.0); Mean Corpuscular Hgb Conc 32.9 g/dL (32.0-36.0); Mean Corpuscular Volume 87.1 fL (80.0-100.0); Mean Platelet Volume 9.3 fL (9.4-12.4); Monocytes # (auto) 0.79 K/uL (0.11-0.59); Monocytes % (auto) 6.3 %; Neutrophils # (auto) 9.17 K/uL (1.40-6.50); Neutrophils % (auto) 73.5 %; Platelet Count 293 K/uL (130-400); RDW Coefficient of Variation 14.7 % (11.5-14.5); RDW Standard Deviation 47.1 fL (36.4-46.3); White Blood Count 12.48 K/ul (4.8-10.8)
[2024-07-02 05:13] LABS: Albumin Globulin Ratio 1.7 (0.9-2); Albumin Level 4.6 gm/dl (3.4-5.0); BUN Creatinine Ratio 18.5 (10-20); Bilirubin,Total 0.7 mg/dl (0.2-1.0); Calcium 8.9 mg/dl (8.6-10.3); Creatinine Clr Calc Pharmacy 123.4 ml/min; Globulin 2.7 gm/dl (2.5-4.0); Potassium 4.2 mmol/L (3.5-5.1); Total Protein 7.3 gm/dl (6.0-8.3)
--- NOTE | 2024-07-02 06:05 | History & Physical Report ---
Date of Service July 02, 2024 Assessment & Plan (1) Right sided abdominal pain: Plan: 28-year-old male with past medical history significant for GERD, slow transit constipation, attention deficit hyperactivity disorder presents with abdominal pain. Pain is located in the right side of his abdomen. Denies any nausea. Normal bowel movements. Micturating okay. No fevers. No chest pain or shortness of breath, no headache. No runny nose or sore throat or cough. Patient was in the ER yesterday with epigastric abdominal pain and was admitted. CT abdomen pelvis was okay. Gallbladder ultrasound showed no signs of acute cholecystitis. Seen by surgery and recommended HIDA scan. GI was also consulted. But patient wanted to eat and signed out AMA. Patient said at home ate banana and yogurt. Around 11 PM started to have severe abdomen pain again and came to the ER. Patient states he smokes marijuana daily. He is taking testosterone seems for last 4 months and Anavar for last 2 weeks which are not prescribed and he is getting them on his own. Right-sided abdominal pain CT abdomen pelvis and gallbladder ultrasound done yesterday were unremarkable LFTs and lipase are okay We will follow HIDA scan IV Protonix N.p.o. IV fluids Pain control GI consult Bradycardia Monitor med/daily Will follow D-dimer Will follow echo Attention deficit hyperactivity disorder On dexmethylphenidate DVT prophylaxis SCDs for now Disposition Med/telemetry Full code History of Present Illness Chief Complaint: Abdominal pain Primary Care Provider: Antonio Ng MD 28-year-old male with past medical history significant for GERD, slow transit constipation, attention deficit hyperactivity disorder presents with abdominal pain. Pain is located in the right side of his abdomen. Denies any nausea. Normal bowel movements. Micturating okay. No fevers. No chest pain or shortness of breath, no headache. No runny nose or sore throat or cough. Patient was in the ER yesterday with epigastric abdominal pain and was admitted. CT abdomen pelvis was okay. Gallbladder ultrasound showed no signs of acute cholecystitis. Seen by surgery and recommended HIDA scan. GI was also consulted. But patient wanted to eat and signed out AMA. Patient said at home ate banana and yogurt. Around 11 PM started to have severe abdomen pain again and came to the ER. Patient states he smokes marijuana daily. He is taking testosterone seems for last 4 months and Anavar for last 2 weeks which are not prescribed and he is getting them on his own. Past medical history as mentioned above. Past surgical history. Circumcision. Removed cyst over right eye by plastics as a child. Complicated left shoulder surgery. Social history. Chews tobacco. Drinks alcohol. Smokes marijuana daily. Family history. Mother has hypothyroidism. Endometriosis. IBS. Allergies. Maternal grandfather had hypertension. Stroke. Allergies Allergy/AdvReac Type Severity Reaction Status Date / Time bee venom protein (honey bee) Allergy Severe Anaphylaxis Unverified 07/01/24 11:39 latex Allergy Intermediate Hives Unverified 07/01/24 11:39 Home Medications Medication Instructions Recorded Confirmed Type dexmethylphenidate 30 mg 30 mg PO DAILY 07/02/24 07/02/24 History capsule,extended release [id number] omeprazole 20 mg capsule,delayed 20 mg PO DAILY 07/02/24 07/02/24 History release oxandrolone 2.5 mg tablet 2.5 mg PO UD 07/02/24 07/02/24 History testosterone cypionate 50 mg/mL 50 mg IM UD 07/02/24 07/02/24 History intramuscular oil Past Med/Surg History Problem List RUQ pain Epigastric pain Right sided abdominal pain (Acute) Social History Smoking Status: Never smoker Second Hand Exposure: Yes; Do You Dip or Chew Tobacco: No; Hx Alcohol Use: Yes Hx Substance Use: Yes Last Used Substance: Hours (ago) Substance Use Type Other:: Testosterone shots. Preferred Language: Occitan Communication Ability: Effective Manager Of Investigations Required: No Beliefs That Will Affect Care: None Current Living Situation: Alone Feels Safe at Home: Yes Assistive Devices: None Review of Systems Review of Systems: All systems reviewed & are unremarkable except as noted in HPI & below Physical Exam Physical Exam: General- Not in acute distress Head- atraumatic Eyes- PERRL. ENT- oropharynx clear Neck- supple, no JVD. Lungs- clear to auscultation no wheezing or crackles Heart- regular rate and rhythm; no murmur, no gallop. Abdomen- normal bowel sounds, soft, tenderness in right side of abdomen with mild guarding, no distension Extremities- no pretibial edema, no erythema seen Neuro- alert, oriented PERRL, no facial palsy; no dysarthria; moves extremities Results & Data Results & Data Vital Signs (Past 12 Hours) Vital Signs Temp Pulse Pulse Resp BP BP Pulse Ox 07/02/24 04:45 49 L 07/02/24 04:33 51 L 18 98 07/02/24 04:33 51 L 18 122/75 98 07/02/24 03:35 36.5 C 65 149/74 H 99 O2 Del Method 07/02/24 04:45 07/02/24 04:33 Room Air 07/02/24 04:33 Room Air 07/02/24 03:35 Room Air Diagnostic Findings Laboratory Results WBC 12.48 K/ul (4.8-10.8) H 07/02/24 04:36 RBC 5.80 M/uL (4.70-6.10) 07/02/24 04:36 Hgb 16.6 g/dl (14.0-18.0) 07/02/24 04:36 Hct 50.5 % (42.0-52.0) 07/02/24 04:36 MCV 87.1 fL (80.0-100.0) 07/02/24 04:36 MCH 28.6 pg (25.0-34.0) 07/02/24 04:36 MCHC 32.9 g/dL (32.0-36.0) 07/02/24 04:36 RDW Std Deviation 47.1 fL (36.4-46.3) H 07/02/24 04:36 RDW Coeff of Lucy 14.7 % (11.5-14.5) H 07/02/24 04:36 Plt Count 293 K/uL (130-400) 07/02/24 04:36 MPV 9.3 fL (9.4-12.4) L 07/02/24 04:36 Immature Gran % (Auto) 0.4 % 07/02/24 04:36 Neut % (Auto) 73.5 % 07/02/24 04:36 Lymph % (Auto) 18.1 % 07/02/24 04:36 [place] % (Auto) 6.3 % 07/02/24 04:36 Eos % (Auto) 1.5 % 07/02/24 04:36 Baso % (Auto) 0.2 % 07/02/24 04:36 Neut # (Auto) 9.17 K/uL (1.40-6.50) H 07/02/24 04:36 Lymph # (Auto) 2.26 K/uL (1.20-3.40) 07/02/24 04:36 [place] # (Auto) 0.79 K/uL (0.11-0.59) H 07/02/24 04:36 Eos # (Auto) 0.19 K/uL (0.00-0.50) 07/02/24 04:36 Baso # (Auto) 0.02 K/uL (0.00-0.20) 07/02/24 04:36 Immature Gran # (Auto) 0.05 K/uL (0.01-0.20) 07/02/24 04:36 Sodium 136 mmol/L (136-145) 07/02/24 04:36 Potassium 4.2 mmol/L (3.5-5.1) 07/02/24 04:36 Chloride 102 mmol/L (98-107) 07/02/24 04:36 Carbon Dioxide 27 mmol/L (21-32) 07/02/24 04:36 Anion Gap 7 (3-11) 07/02/24 04:36 BUN 17 mg/dl (6-23) 07/02/24 04:36 Creatinine 0.92 mg/dl (0.6-1.4) 07/02/24 04:36 Est Cr Clr Drug Dosing 123.4 ml/min 07/02/24 04:36 eGFR 116.20 07/02/24 04:36 BUN/Creatinine Ratio 18.5 (10-20) 07/02/24 04:36 Glucose 98 mg/dl (70-99(Fasting)) 07/02/24 04:36 Calcium 8.9 mg/dl (8.6-10.3) 07/02/24 04:36 Total Bilirubin 0.7 mg/dl (0.2-1.0) 07/02/24 04:36 AST 28 U/L (13-39) 07/02/24 04:36 ALT 23 U/L (7-52) 07/02/24 04:36 Alkaline Phosphatase 52 U/L (34-104) 07/02/24 04:36 Total Protein 7.3 gm/dl (6.0-8.3) 07/02/24 04:36 Albumin 4.6 gm/dl (3.4-5.0) 07/02/24 04:36 Globulin 2.7 gm/dl (2.5-4.0) 07/02/24 04:36 Albumin/Globulin Ratio 1.7 (0.9-2) 07/02/24 04:36 Lipase 36 U/L (11-82) 07/02/24 04:36 ECG Additional Comments: ECG sinus bradycardia with PACs rate of 52. QTc 390 Code Status & VTE Plan VTE Prophylaxis Plan VTE Prophylaxis will be ordered: Yes
--- NOTE | 2024-07-02 06:17 | Emergency Department Note ---
Impression & Plan Abdominal pain, acute, epigastric Admit to the [facility] ED Provider Note NAME: JALEN EUGENE AGE: 28 SEX: Male INFORMANT: Patient ED PROVIDER(S): Danelle Butt DO CHIEF COMPLAINT: epigastric pain PLAN: Disposition: Admit to the [facility] MEDICAL DECISION MAKING: patient was discharged from the hospital around 7 PM this evening as his epigastric abdominal pain was feeling better and they were not planning to perform a HIDA scan until sometime Wednesday. patient was Very hungry wanting to go home to eat. Patient did go home and have some yogurt, Jell-O, oatmeal, and bananas with peanut butter between 8 PM and 11 PM this evening. Around 3 AM, the patient awoke with severe epigastric abdominal pain. The pain worsened with movement, hiccups and coughing. Patient's female friend rubbed his abdomen and seem to get some improvement but the pain returned and was severe. Patient presents back to the emergency department requesting admission back into the hospital. Laboratory studies were repeated here and revealed slight increase to the white blood cell count 12.48 up from 10.81. Renal function remains normal. LFTs remain normal. Lipase remains normal. Patient was medicated with IV Pepcid, IV Dilaudid and IV Zofran. I discussed the case with the [facility] as this was the service that hospitalized him just earlier today. Care/management discussed with: global transportation manager and [facility] Triage Nursing notes: reviewed and agree With them. Vital Signs: reviewed and unremarkable Prior/ Outside/ External records reviewed: I did review the records from his admission to the hospital from the previous 2 days where the patient was being evaluated and worked up for this epigastric abdominal pain. Differential Diagnosis: Pancreatitis, acute cholecystitis, colitis, gastric ulcer, peptic ulcer Diagnostics, independently interpreted by me: Cardiac Monitoring: normal sinus rhythm at a rate of 62 HPI: 28 year old Male arrives for evaluation of epigastric abdominal pain. Patient had just been discharged from the hospital couple of hours ago where he is being worked up for this epigastric abdominal pain. Patient had been kept n.p.o. while he was here in the hospital preparation for HIDA scan on Wednesday morning. The source of his epigastric abdominal pain was thought to be secondary to possible gastric ulcer/peptic ulcer, or gallbladder. The patient was insistent upon discharge because he was feeling better at that time and was hungry and wanting to go home to eat. He did go home and eat and couple of hours after eating felt much more significant pain. PAST MEDICAL HISTORY: See Below, PAST SURGICAL HISTORY: See Below, SOCIAL HISTORY: See Below, HOME MEDICATIONS: See list ALLERGIES: See list VITALS: See Below PHYSICAL EXAMINATION: HEENT: Head - normocephalic and atraumatic. Pupils are equal, round, and reactive to light. Extraocular eye muscles are intact, and sclera are anicteric. Nose - moist nasal mucosa without discharge. Mouth - moist buccal mucosa. Oropharynx is nonerythematous and there is no tonsillar exudate or edema noted. Neck: Supple; no cervical lymphadenopathy Heart: Regular rate and rhythm. There is a normal S1 and S2 with no murmurs, clicks, or gallops appreciated. Lungs: Clear to auscultation bilaterally with no wheezes, rales, or rhonchi. Abdomen: Soft, exquisitely tender to palpation in the epigastrium and slightly in the right upper quadrant, mildly distended, with good bowel sounds. There are no palpable pulsatile masses or hepatosplenomegaly. There is no guarding, rigidity, or rebound noted. Extremities: No evidence of cyanosis, clubbing, or edema. There are easily palpable peripheral pulses. Skin: warm and dry with good turgor and no rashes. Emergency department treatment: IV Pepcid, IV Zofran, IV Dilaudid Emergency department course: The patient was evaluated in room B-8. A complete history and physical was performed. Records from his earlier admission were reviewed. An IV lock was initiated and labs were drawn as above. The patient was given a dose of IV Pepcid, IV Zofran and IV Dilaudid. I discussed the case with the [facility] Hospitalist and they will readmit him to the hospital. Past Med/Surg History Problem List (Updated 07/02/24 @ 16:54 by Danelle Butt DO) Abdominal pain, acute, epigastric (Acute) RUQ pain Epigastric pain Right sided abdominal pain (Acute) Social History Smoking Status: Never smoker Second Hand Exposure: No; Do You Dip or Chew Tobacco: No; Tobacco Cessation Education Requested by Patient: No Hx Alcohol Use: No Hx Substance Use: Yes Last Used Substance: Days (ago) Substance Use Type Other:: Testosterone shots. Preferred Language: Uzbek Communication Ability: Effective Real Estate Sales Manager Required: No Beliefs That Will Affect Care: None Current Living Situation: Family Current Living Situation Comment: with minor child Other Information That Helps Us Care for You: No Feels Safe at Home: Yes Safety Concerns: Feels Safe At This Time Assistive Devices: None Allergies Allergies Allergy/AdvReac Type Severity Reaction Status Date / Time bee venom protein (honey bee) Allergy Severe Anaphylaxis Unverified 07/01/24 11:39 latex Allergy Intermediate Hives Unverified 07/01/24 11:39 Home Meds Home Medications Medication Instructions Recorded Confirmed dexmethylphenidate 30 mg 30 mg PO DAILY 07/02/24 07/02/24 capsule,extended release [id number] omeprazole 20 mg capsule,delayed 20 mg PO DAILY 07/02/24 07/02/24 release oxandrolone 2.5 mg tablet 2.5 mg PO UD 07/02/24 07/02/24 testosterone cypionate 50 mg/mL 50 mg IM UD 07/02/24 07/02/24 intramuscular oil Results & Data (ED) Vital Signs Vital Signs - 24 hr 07/02/24 03:35 07/02/24 04:33 07/02/24 04:33 Temperature 36.5 C Temperature Source Oral Pulse Rate 65 51 L Pulse Rate [Apical] 51 L Pulse Rhythm Regular Pulse Rhythm [Apical] Regular Pulse Strength [Apical] Normal Respiratory Rate 18 18 Respiratory Effort / Characteristics Non-Labored Spontaneous Respiratory Depth Normal Respiratory Pattern Regular Blood Pressure 149/74 H Blood Pressure [Right Arm] 122/75 Blood Pressure Mean 99 Blood Pressure Mean [Right Arm] 90 Blood Pressure Position [Right Arm] Semi-fowlers Pulse Oximetry 99 98 98 Oxygen Delivery Method Room Air Room Air Room Air Sepsis Recent Fever Within 48 Hours No Sepsis New/Unexplained Change in Mental Status No Sepsis Action Taken by Nursing No Action Required 07/02/24 04:45 Temperature Temperature Source Pulse Rate 49 L Pulse Rate [Apical] Pulse Rhythm Pulse Rhythm [Apical] Pulse Strength [Apical] Respiratory Rate Respiratory Effort / Characteristics Respiratory Depth Respiratory Pattern Blood Pressure Blood Pressure [Right Arm] Blood Pressure Mean Blood Pressure Mean [Right Arm] Blood Pressure Position [Right Arm] Pulse Oximetry Oxygen Delivery Method Sepsis Recent Fever Within 48 Hours Sepsis New/Unexplained Change in Mental Status Sepsis Action Taken by Nursing Laboratory Data 07/02/24 04:36 07/02/24 04:36 Lab Results 07/02/24 Range/Units 04:36 WBC 12.48 H (4.8-10.8) K/ul RBC 5.80 (4.70-6.10) M/uL Hgb 16.6 (14.0-18.0) g/dl Hct 50.5 (42.0-52.0) % MCV 87.1 (80.0-100.0) fL MCH 28.6 (25.0-34.0) pg MCHC 32.9 (32.0-36.0) g/dL RDW Std Deviation 47.1 H (36.4-46.3) fL RDW Coeff of Lucy 14.7 H (11.5-14.5) % Plt Count 293 (130-400) K/uL MPV 9.3 L (9.4-12.4) fL Immature Gran % (Auto) 0.4 % Neut % (Auto) 73.5 % Lymph % (Auto) 18.1 % [place] % (Auto) 6.3 % Eos % (Auto) 1.5 % Baso % (Auto) 0.2 % Neut # (Auto) 9.17 H (1.40-6.50) K/uL Lymph # (Auto) 2.26 (1.20-3.40) K/uL [place] # (Auto) 0.79 H (0.11-0.59) K/uL Eos # (Auto) 0.19 (0.00-0.50) K/uL Baso # (Auto) 0.02 (0.00-0.20) K/uL Immature Gran # (Auto) 0.05 (0.01-0.20) K/uL Sodium 136 (136-145) mmol/L Potassium 4.2 (3.5-5.1) mmol/L Chloride 102 (98-107) mmol/L Carbon Dioxide 27 (21-32) mmol/L Anion Gap 7 (3-11) BUN 17 (6-23) mg/dl Creatinine 0.92 (0.6-1.4) mg/dl Est Cr Clr Drug Dosing 123.4 ml/min eGFR 116.20 BUN/Creatinine Ratio 18.5 (10-20) Glucose 98 (70-99(Fasting)) mg/dl Calcium 8.9 (8.6-10.3) mg/dl Total Bilirubin 0.7 (0.2-1.0) mg/dl AST 28 (13-39) U/L ALT 23 (7-52) U/L Alkaline Phosphatase 52 (34-104) U/L Total Protein 7.3 (6.0-8.3) gm/dl Albumin 4.6 (3.4-5.0) gm/dl Globulin 2.7 (2.5-4.0) gm/dl Albumin/Globulin Ratio 1.7 (0.9-2) Lipase 36 (11-82) U/L Administered Medications Hydromorphone HCl (Hydromorphone Inj 0.5 Mg/0.5 Ml Syr) 0.5 mg IV Q4H PRN PRN Reason: Mod-Sev Pain (Scale 4-10) Stop: 07/16/24 08:39 Last Admin: 07/02/24 14:01 Dose: 0.5 mg Documented By: Admin: 07/02/24 10:09 Dose: 0.5 mg Documented By: ALF Piperacillin Sod/Tazobactam Sod (Zosyn) 4.5 gm in 100 mls @ 25 mls/hr IV Q8H [facility]; Protocol Stop: 07/12/24 12:59 Last Admin: 07/02/24 12:54 Dose: 25 mls/hr Documented By: ALF Pantoprazole Sodium 40 mg/ (Syringe) 10 mls @ 5 mls/min IV DAILY@1100 [facility] Stop: 08/01/24 10:59 Last Admin: 07/02/24 11:43 Dose: 5 mls/min Documented By: ALF Miscellaneous (Do Not Tube~ Dexmethylphenidate~ Order Awaiting Action) 1 each N/A QS [facility] Stop: 08/01/24 09:14 Last Admin: 07/02/24 15:30 Dose: Not Given Documented By: Admin: 07/02/24 10:21 Dose: Not Given Documented By: ALF Polyethylene Glycol (Polyethylene (Miralax) 17 Gm Pack) 17 gm PO DAILY [facility] Stop: 08/01/24 11:44 Last Admin: 07/02/24 12:54 Dose: Not Given Documented By: ALF Discontinued Medications Bisacodyl (Bisacodyl 10 Mg Supp) 10 mg MT NOW STA Stop: 07/02/24 13:02 Last Admin: 07/02/24 13:35 Dose: Not Given Documented By: ALF Hydromorphone HCl (Hydromorphone Inj 0.5 Mg/0.5 Ml Syr) 0.5 mg IV NOW STA Stop: 07/02/24 04:27 Last Admin: 07/02/24 04:36 Dose: 0.5 mg Documented By: TACOS Hydromorphone HCl (Hydromorphone Inj 0.5 Mg/0.5 Ml Syr) 0.5 mg IV NOW STA Stop: 07/02/24 05:36 Last Admin: 07/02/24 05:41 Dose: 0.5 mg Documented By: RIVER Famotidine (Pepcid 20mg Iv Push) 20 mg in 5 mls @ 2.5 mls/min IV NOW STA Stop: 07/02/24 04:27 Last Admin: 07/02/24 04:36 Dose: 2.5 mls/min Documented By: TACOS Acetaminophen (Ofirmev) 1,000 mg in 100 mls @ 400 mls/hr IV NOW STA Stop: 07/02/24 06:32 Last Infusion: 07/02/24 07:09 Dose: Infused Documented By: Admin: 07/02/24 06:45 Dose: 400 mls/hr Documented By: TACOS Famotidine (Pepcid 20mg Iv Push) 20 mg in 5 mls @ 2.5 mls/min IV NOW STA Stop: 07/02/24 07:59 Last Admin: 07/02/24 08:25 Dose: 2.5 mls/min Documented By: HEIDY Piperacillin Sod/Tazobactam Sod (Zosyn) 4.5 gm in 100 mls @ 200 mls/hr IV NOW STA; Protocol Stop: 07/02/24 08:42 Last Infusion: 07/02/24 09:12 Dose: Infused Documented By: Admin: 07/02/24 08:25 Dose: 200 mls/hr Documented By: HEIDY Dextrose/Sodium Chloride (D5w And Nss) 1,000 mls @ 125 mls/hr IV .Q8H IFTIKHAR Stop: 08/01/24 08:39 Last Admin: 07/02/24 10:08 Dose: 125 mls/hr Documented By: ALF Ioversol (Optiray 320 100ml) 94 ml IV ONE ONE Stop: 07/02/24 10:42 Last Admin: 07/02/24 10:41 Dose: 94 ml Documented By: PHILIP Ketorolac Tromethamine (Ketorolac Tromethamine 15 Mg/Ml Vial) 15 mg IV NOW ONE Stop: 07/02/24 07:13 Last Admin: 07/02/24 07:22 Dose: 15 mg Documented By: HEIDY Ketorolac Tromethamine (Ketorolac 30 Mg/Ml Vial) 30 mg IV NOW ONE Stop: 07/02/24 13:02 Last Admin: 07/02/24 13:34 Dose: 30 mg Documented By: ALF Morphine Sulfate (Morphine Sulfate 2 Mg/Ml Carp) 2 mg IV NOW STA Stop: 07/02/24 07:58 Last Admin: 07/02/24 08:03 Dose: 2 mg Documented By: HEIDY Ondansetron HCl (Ondansetron Inj 2 Mg/Ml 2 Ml Vial) 4 mg IV NOW STA Stop: 07/02/24 04:27 Last Admin: 07/02/24 04:36 Dose: 4 mg Documented By: TACOS Polyethylene Glycol (Polyethylene (Miralax) 17 Gm Pack) 17 gm PO TID IFTIKHAR Stop: 08/01/24 08:59 Last Admin: 07/02/24 08:25 Dose: 17 gm Documented By: HEIDY Discharge Plan Visit Data Chief Complaint: Abdominal Pain Stated Complaint: ABD PAIN ED Provider: Danelle Butt Discharge Problem: Abdominal pain, acute, epigastric Patient Disposition: Admitted As Inpatient Discharge Instructions Interventions: ED Discharge Assessment Last Done: 07/02/24 08:29
[2024-07-02] MEDS: ACETAMINOPHEN 1,000 MG/100 ML VIAL IV STA (06:45)
[2024-07-02] MEDS: KETOROLAC TROMETHAMINE 15 MG/ML VIAL IV ONE (07:22)
[2024-07-02] MEDS: MoRPHine SULFATE 2 MG/ML CARP IV STA (08:03)
--- NOTE | 2024-07-02 08:23 | Communication Note ---
Date of Service: July 02, 2024 Evaluated in ED Severe abdominal pain noted--whimpering in room, huddled over holding abdomen no nausea or fevers Labs with uptrending WBC Discussed with General Surgery for ?early appendicitis given all lfts/lipase/etc WNL Recommended CT with IV/PO contrast will keep npo for HIDA tomorrow analgesia prn
[2024-07-02] MEDS: POLYETHYLENE (MIRALAX) 17 GM PACK PO SCH ×2 (08:25→12:54)
[2024-07-02] MEDS: 4.5GM X1 IV STA (08:25)
[2024-07-02] MEDS ORDERED: ONDANSETRON INJ 2 MG/ML 2 ML VIAL IV PRN (08:40)
[2024-07-02] MEDS ORDERED: POLYETHYLENE (MIRALAX) 17 GM PACK PO PRN (08:40)
[2024-07-02] MEDS ORDERED: DEXMETHYLPHENIDATE 30 MG PO SCH (09:00)
[2024-07-02 09:59] LABS: Appearance Urine Clear (Clear); Bacteria Urine Automated None Seen (None Seen); Bilirubin Urine Negative (Negative); Blood Urine Negative (Negative); Cast Urine Automated 0-2 /lpf (0-2); Color Urine Yellow; Epithelial Cell Urine Auto 0-2 /hpf (0-2); Glucose Urine UA 2+ (Negative); Ketones Urine 3+ (Negative); Leukocyte Esterase Urine Negative (Negative); Nitrite Urine Negative (Negative); Protein Urine Trace (Negative); RBC Urine Automated 0-2 /hpf (0-2); Specific Gravity Urine 1.038 (1.000-1.030); Urobilinogen Urine Negative (Negative); WBC Urine Automated 0-5 /hpf (0-5)
[2024-07-02 10:00] LABS: D Dimer < 190 ug/L FEU (0-500)
[2024-07-02] MEDS: D5W AND NSS 1,000 ML IV SCH (10:08)
--- NOTE | 2024-07-02 10:08 | Gastrointestinal Consultation ---
Date of Consultation July 02, 2024 Assessment & Plan (1) Right sided abdominal pain: Pleasant young man with abdominal pain that started in the midepigastrium but seems to have settled in the RLQ. He does have a mild leukocytosis. His description of the pain suggests appendicitis but CT showed "normal appendix". CT does show subtle AFL which could suggest an acute enteritis but there is no evidence of bowel wall inflammation on CT. He is currently drinking contrast for CT with oral contrast which will give us a better look at intestinal lumen. His description of the pain to me does not suggest biliary issues but agree HIDA is a good idea if appendix does not rear its head. This could be early development of IBD but there is no evidence of that on CT. If all testing is negative and symptoms continue then endoscopic evaluation may be warranted with both EGD and colonoscopy but will wait until all other testing done. History of Present Illness Reason for Consultation: abdominal pain Attending Physician: Germania Farrell MD History of Present Illness 28 year old man who says he was "out of it" all day Wednesday, feeling weak, taking naps--which he never does and then going to sleep really early. He woke up at 3 am Wednesday morning with severe upper abdominal pain just below his diaphragm that moved to the right side and settled into the right lower abdomen. He ended up coming to the ED, getting admitted but then the pain resolved and he went home. he tried eating and his pain returned this morning again at 3 am so he came back and was readmitted. He denies nausea or vomiting. He denies issues with diarrhea. He says he feels hot but the nurses tell him he doesn't have fever. He ate self cooked burgers on night and wings on Wednesday. Ultrasound on admit was negative. CT basically negative although mentions AFL in small bowel and colon. Readmit CBC shows mild leukocytosis. He tells me that as a kid he went to [facility] for a stomach issue and had upper and lower GI but they didn't find anything. In general he has no chronic stomach issues. He drinks only rarely, doesn't smoke cigarettes but does smoke marijuana. Allergies Allergy/AdvReac Type Severity Reaction Status Date / Time bee venom protein (honey bee) Allergy Severe Anaphylaxis Unverified 07/01/24 11:39 latex Allergy Intermediate Hives Unverified 07/01/24 11:39 Home Medications Medication Instructions Recorded Confirmed Type dexmethylphenidate 30 mg 30 mg PO DAILY 07/02/24 07/02/24 History capsule,extended release -43 omeprazole 20 mg capsule,delayed 20 mg PO DAILY 07/02/24 07/02/24 History release oxandrolone 2.5 mg tablet 2.5 mg PO UD 07/02/24 07/02/24 History testosterone cypionate 50 mg/mL 50 mg IM UD 07/02/24 07/02/24 History intramuscular oil Patient History Social History Smoking Status: Never smoker Second Hand Exposure: No; Do You Dip or Chew Tobacco: No; Tobacco Cessation Education Requested by Patient: No Hx Alcohol Use: No Hx Substance Use: Yes Last Used Substance: Days (ago) Substance Use Type Other:: Testosterone shots. Preferred Language: Tajik Communication Ability: Effective Server Developer Required: No Beliefs That Will Affect Care: None Current Living Situation: Family Current Living Situation Comment: with minor child Other Information That Helps Us Care for You: No Feels Safe at Home: Yes Safety Concerns: Feels Safe At This Time Assistive Devices: None Review of Systems Review of Systems: All systems reviewed & are unremarkable except as noted in HPI & below Physical Exam Constitutional: WD/WN, vitals as above Neck: trachea midline, no thyromegaly Respiratory: normal respiratory effort, lungs clear to auscultation Cardiovascular: RRR, no murmur, no edema Gastrointestinal (Abdomen): Inspection/Auscultation: abdomen normal to inspection and normal bowel sounds Percussion/Palpation: + abdomen tender (lower abdomen with most tenderness in RLQ) and abdomen soft Musculoskeletal: Extremities: extremities normal to inspection Results & Data Vital Signs (Past 12 Hours) Vital Signs Temp Pulse Pulse Resp BP BP Pulse Ox 07/02/24 09:17 52 L 07/02/24 09:02 36.6 C 51 L 18 118/71 95 07/02/24 08:44 36.5 C 43 L 18 156/78 H 100 07/02/24 07:05 63 18 167/80 H 97 07/02/24 06:00 48 L 18 147/81 H 98 07/02/24 04:45 49 L 07/02/24 04:33 51 L 18 98 07/02/24 04:33 51 L 18 122/75 98 07/02/24 03:35 36.5 C 65 149/74 H 99 O2 Del Method 07/02/24 09:17 07/02/24 09:02 Room Air 07/02/24 08:44 Room Air 07/02/24 07:05 07/02/24 06:00 Room Air 07/02/24 04:45 07/02/24 04:33 Room Air 07/02/24 04:33 Room Air 07/02/24 03:35 Room Air Laboratory Results 07/02/24 07/02/24 07/02/24 Range/Units Unknown 08:51 04:36 WBC 12.48 H (4.8-10.8) K/ul RBC 5.80 (4.70-6.10) M/uL Hgb 16.6 (14.0-18.0) g/dl Hct 50.5 (42.0-52.0) % MCV 87.1 (80.0-100.0) fL MCH 28.6 (25.0-34.0) pg MCHC 32.9 (32.0-36.0) g/dL RDW Std Deviation 47.1 H (36.4-46.3) fL RDW Coeff of Lucy 14.7 H (11.5-14.5) % Plt Count 293 (130-400) K/uL MPV 9.3 L (9.4-12.4) fL Immature Gran % (Auto) 0.4 % Neut % (Auto) 73.5 % Lymph % (Auto) 18.1 % [place] % (Auto) 6.3 % Eos % (Auto) 1.5 % Baso % (Auto) 0.2 % Neut # (Auto) 9.17 H (1.40-6.50) K/uL Lymph # (Auto) 2.26 (1.20-3.40) K/uL [place] # (Auto) 0.79 H (0.11-0.59) K/uL Eos # (Auto) 0.19 (0.00-0.50) K/uL Baso # (Auto) 0.02 (0.00-0.20) K/uL Immature Gran # (Auto) 0.05 (0.01-0.20) K/uL D-Dimer < 190 (0-500) ug/L FEU Sodium 136 (136-145) mmol/L Potassium 4.2 (3.5-5.1) mmol/L Chloride 102 (98-107) mmol/L Carbon Dioxide 27 (21-32) mmol/L Anion Gap 7 (3-11) BUN 17 (6-23) mg/dl Creatinine 0.92 (0.6-1.4) mg/dl Est Cr Clr Drug Dosing 123.4 ml/min eGFR 116.20 BUN/Creatinine Ratio 18.5 (10-20) Glucose 98 (70-99(Fasting)) mg/dl Calcium 8.9 (8.6-10.3) mg/dl Total Bilirubin 0.7 (0.2-1.0) mg/dl AST 28 (13-39) U/L ALT 23 (7-52) U/L Alkaline Phosphatase 52 (34-104) U/L Total Protein 7.3 (6.0-8.3) gm/dl Albumin 4.6 (3.4-5.0) gm/dl Globulin 2.7 (2.5-4.0) gm/dl Albumin/Globulin Ratio 1.7 (0.9-2) Lipase 36 (11-82) U/L Urine Color Yellow Urine Appearance Clear (Clear) Urine pH 6.0 (4.5-7.5) Ur Specific [place] 1.038 H (1.000-1.030) Urine Protein Trace H (Negative) Urine Glucose (UA) 2+ H (Negative) Urine Ketones 3+ H (Negative) Urine Blood Negative (Negative) Urine Nitrite Negative (Negative) Urine Bilirubin Negative (Negative) Urine Urobilinogen Negative (Negative) Ur Leukocyte Esterase Negative (Negative) Urine WBC (Auto) 0-5 (0-5) /hpf Urine RBC (Auto) 0-2 (0-2) /hpf U Hyaline Cast (Auto) 0-2 (0-2) /lpf U Epithel Cells (Auto) 0-2 (0-2) /hpf Urine Bacteria (Auto) None Seen (None Seen)
[2024-07-02] MEDS: HYDROmorphone INJ 0.5 MG/0.5 ML SYR IV PRN (10:09)
[2024-07-02] MEDS: OPTIRAY 320 100ml IV ONE (10:41)
--- NOTE | 2024-07-02 11:32 | CT Scan Report ---
ABDOMEN AND PELVIS CT WITH IV AND ORAL CONTRAST CT DOSE: 1086.52 mGy.cm HISTORY: Acute right lower quadrant abdominal pain r/o early appendicitis TECHNIQUE: Multiaxial CT images of the abdomen and pelvis were performed following the IV administrat ion of 94 cc of Optiray and oral contrast. A dose lowering technique was utilized adhering to the pr inciples of SANDRA. COMPARISON STUDY: 07/01/2024 FINDINGS: The lung bases are clear. Periportal edema, likely related to overhydration. The liver, spl een, gallbladder, pancreas, kidneys, and adrenal glands are within normal limits. Noninflamed appendi x. There are a few scattered mid abdominal small bowel air-fluid levels. Mild colonic diverticulosis. No bowel wall thickening or obstruction. The pelvic organs are unremarkable. 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 No suspicious lytic or blastic osseous lesions. IMPRESSION: 1. Unchanged exam from the study obtained 24 hours earlier. 2. No bowel obstruction or bowel wall thickening. 3. Normal appendix. ACT 112: Negative or not required by law. The above report was generated using voice recognition software. It may contain grammatical, syntax o r spelling errors. Electronically signed by: Yuan Cochran M.D. 07/02/2024 11:31 AM
[2024-07-02] MEDS: PANTOprazole 40 MG in SYRINGE 0 ML IV SCH (11:43)
[2024-07-02 12:04] LABS: Amphetamines+Metham, Urine Neg (Neg); Barbiturates, Urine Neg (Neg); Benzodiazepine, Urine Neg (Neg); Cocaine, Urine Neg (Neg); Fentanyl, Urine Neg (Neg); MDMA (Ecstacy), Urine Neg (Neg); Marijuana, Urine Pos (Neg); Methadone, Urine Neg (Neg); Opiate, Urine Pos (Neg); Phencyclidine, Urine Neg (Neg)
[2024-07-02] MEDS: PIPERACILLIN/TAZOBACTAM 4.5 GM/100 ML BAG IV SCH (12:54)
[2024-07-02] MEDS: KETOROLAC 30 MG/ML VIAL IV ONE (13:34)
[2024-07-02] MEDS: bisacodyL 10 MG SUPP PR STA (13:35)
[2024-07-02] MEDS: LORazepam 0.5 MG TAB PO STA (20:46)
[2024-07-02] MEDS: KETOROLAC 30 MG/ML VIAL IV PRN (22:49)
[2024-07-03 06:13] LABS: Basophils # (auto) 0.04 K/uL (0.00-0.20); Basophils % (auto) 0.4 %; Eosinophils # (auto) 0.27 K/uL (0.00-0.50); Eosinophils % (auto) 2.7 %; Hematocrit (blood only) 45.9 % (42.0-52.0); Hemoglobin 16.1 g/dl (14.0-18.0); Immature Granulocytes # (auto) 0.04 K/uL (0.01-0.20); Immature Granulocytes % (auto) 0.4 %; Lymphocytes # (auto) 2.38 K/uL (1.20-3.40); Lymphocytes % (auto) 24.2 %; Mean Corpuscular Hemoglobin 29.9 pg (25.0-34.0); Mean Corpuscular Hgb Conc 35.1 g/dL (32.0-36.0); Mean Corpuscular Volume 85.2 fL (80.0-100.0); Mean Platelet Volume 9.4 fL (9.4-12.4); Monocytes # (auto) 0.92 K/uL (0.11-0.59); Monocytes % (auto) 9.4 %; Neutrophils # (auto) 6.17 K/uL (1.40-6.50); Neutrophils % (auto) 62.9 %; Platelet Count 291 K/uL (130-400); RDW Coefficient of Variation 14.6 % (11.5-14.5); RDW Standard Deviation 45.4 fL (36.4-46.3); Red Blood Count 5.39 M/uL (4.70-6.10); White Blood Count 9.82 K/ul (4.8-10.8)
[2024-07-03 06:28] LABS: Albumin Globulin Ratio 1.7 (0.9-2); BUN Creatinine Ratio 14.8 (10-20); Bilirubin,Total 0.7 mg/dl (0.2-1.0); Calcium 8.4 mg/dl (8.6-10.3); Creatinine Clr Calc Pharmacy 105.1 ml/min; Globulin 2.4 gm/dl (2.5-4.0); Magnesium 2.1 mg/dl (1.7-2.4); Potassium 4.3 mmol/L (3.5-5.1); Total Protein 6.4 gm/dl (6.0-8.3)
--- NOTE | 2024-07-03 07:25 | Hospitalist Progress Note ---
Date of Service July 03, 2024 Assessment & Plan (1) Right sided abdominal pain: Plan: 28-year-old male with past medical history significant for GERD, slow transit constipation, attention deficit hyperactivity disorder presents with abdominal pain. Pain is located in the right side of his abdomen. Denies any nausea. Normal bowel movements. Micturating okay. No fevers. No chest pain or shortness of breath, no headache. No runny nose or sore throat or cough. Patient was in the ER yesterday with epigastric abdominal pain and was admitted. CT abdomen pelvis was okay. Gallbladder ultrasound showed no signs of acute cholecystitis. Seen by surgery and recommended HIDA scan. GI was also consulted. But patient wanted to eat and signed out AMA. Patient said at home ate banana and yogurt. Around 11 PM started to have severe abdomen pain again and came to the ER. Patient states he smokes marijuana daily. He is taking testosterone seems for last 4 months and Anavar for last 2 weeks which are not prescribed and he is getting them on his own. Right-sided abdominal pain Acute CTAP and GB US done yesterday were unremarkable LFTs and lipase normal IV Protonix; takes PO Prilosec chronically HIDA scan results from today: Normal hepatobiliary scan. No evidence for acute cholecystitis. Will DC IV Fluids and will order clear liquid diet until MN Pain control; DC IV Dilaudid. Continue IV Toradol PRN and IV Tylenol x1 prior to HIDA scan GI consult; appreciate recommendations . NPO after MN for possibility of EGD/C- scope on 07/04 Bradycardia Monitor med/daily D-Dimer normal ECHO EF 55-60%, no significant valve disease, LV function normal. Resolved; HR 70-90 this AM Attention deficit hyperactivity disorder On dexmethylphenidate; continue Disposition: PCP: Dr. North DVT prophylaxis: SCDs for now Med/telemetry Code Stable: Full code I spent a total of 58 minutes coordinating, documenting, and providing care for this patient excluding time spent in the performance of separately billed services. All of the aforementioned completed while collaborating with the assigned attending physician for a full treatment plan. Please see their addendum for further details. Admission and Anticipated Discharge Date Admission Date: July 02, 2024 Supervising Physician Co-Signing Physician Notes I have seen and discussed the case with the collaborating advanced practitioner. I agree with the above PN. I have reviewed and confirmed the patients medical history, the findings on physical examination, and the patients diagnosis and treatment plan with Augustus LOPEZ and agree with the information documented. Negative HIDA scan. Plan for cscope tomorrow. stop opioids I spent a total of 5 minutes coordinating, documenting, and providing care for this patient excluding time spent in the performance of separately billed services. All of the aforementioned completed outside of collaborating with the assigned advanced practitioner for a full treatment plan. I have reviewed the advanced practitioner's documentation, and I agree with, and take responsibility for the plan of care Subjective Patient sitting upright in hospital bed in no apparent distress on the phone. He was pleasant with interaction. States that his abdominal pain has improved overnight. Walked a few laps in the hallway which went well without exacerbating pain. Epigastric and right sided abdominal pain not appreciated on examination. Reports that his pain initially was epigastric in location. Continues to have loose stools, no blood or malodor noticed. Plan for HIDA scan today at 1230 Review of Systems Review of Systems: Neuro: (-) Falls, trauma, slurred speech HEENT: (-) C[place], dizziness, dysphagia, visual or auditory changes CV: (-) CP, palpitations, swelling Resp: (-) SOB GI: (-) appetite changes, N/V/D, bowel changes abdominal and epigastric pain resolved : (-) urinary changes Skin: (-) rashes Psych: (-) anxiety, depression Physical Exam Physical Exam: Neuro: AAOx4, PERRLA, no aphagia, memory changes, CNII-XII grossly intact HEENT: head normocephalic, moist mucus membranes CV: S1/S2, (-) M/G/R, (-) edema, cap refill < 3 seconds Resp: Lungs CTA in all tang. On RA GI: Abdomen S/NT/ND, Ax4 bowel sounds, (-) CVA tenderness Musculoskeletal: 5/5 B/L UE strength, 5/5 B/L LE strength. No gait disturbance Skin: (-) rashes , (-) erythema. Psych: euthymic mood Results & Data Results & Data Vital Signs (Past 12 Hours) Vital Signs Temp Pulse Pulse Resp BP Pulse Ox O2 Del Method 07/03/24 04:10 36.8 C 69 126/90 98 Room Air 07/03/24 00:07 36.4 C L 53 L 20 147/86 H 97 Room Air 07/02/24 22:07 58 L 07/02/24 20:07 36.7 C 50 L 20 124/76 95 Room Air Laboratory Results Short CBC 07/03/24 Range/Units 05:57 WBC 9.82 (4.8-10.8) K/ul Hgb 16.1 (14.0-18.0) g/dl Hct 45.9 (42.0-52.0) % Plt Count 291 (130-400) K/uL BMP 07/03/24 05:57 Sodium 137 Potassium 4.3 Chloride 107 Carbon Dioxide 25 BUN 16 Creatinine 1.08 Glucose 100 H Calcium 8.4 L Liver Function 07/03/24 Range/Units 05:57 Total Bilirubin 0.7 (0.2-1.0) mg/dl AST 20 (13-39) U/L ALT 18 (7-52) U/L Alkaline Phosphatase 45 (34-104) U/L Albumin 4.0 (3.4-5.0) gm/dl Urine 07/02/24 Range/Units Unknown Urine Color Yellow Urine Appearance Clear (Clear) Urine pH 6.0 (4.5-7.5) Ur Specific [place] 1.038 H (1.000-1.030) Urine Protein Trace H (Negative) Urine Glucose (UA) 2+ H (Negative)
--- NOTE | 2024-07-03 09:26 | Gastroenterology Progress Note ---
<Statement entered by Lionel Ritter MD - 07/03/24 13:49> I personally saw and examined the patient. I have reviewed the chart and agree with the documentation provided by the HEALTH INFORMATION ASSISTANT including discussion about the assessment, treatment and plan. Unremarkable w/up but pain still severe. Plan for EGD and colon in am if HIDA negative. Date of Service July 03, 2024 Assessment & Plan (1) Abdominal pain, acute, epigastric: Plan: 28 year old male who notes intermittent epigastric pain for a few months who is admitted w/ worsening epigastric pain, RUQ pain and some loose stools. CTAP and ABD US largely unremarkable other than air fluid levels in small bowel and colon. There is plan for a HIDA scan today. If HIDA scan is unremarkable, we are happy to arrange EGD/colonoscopy evaluation on 07/04/24. HIDA Clear liquids today If HIDA negative, EGD/Colon 07/04/24 Will need golytely prep and NPO after midnight. Thank you for allowing us to participate in the care of this patient. Please call with any acute changes, questions or concerns. Please see addendum below with additional recommendation from my supervising physician. I spent a total of 40 minutes on the date of service in review of patient's record, and previously obtained information in person and appropriate medical visit, discussion and education of plan, with patient and/or caregiver, placing orders for tests/referral/procedures as medically necessary and documentation of pertinent clinical information in patient's medical records for their visit today. Admission and Anticipated Discharge Date Admission Date: July 02, 2024 Subjective Persistent epigastric and right sided abd pain. Reports life long GERD symptoms. He had EGD/Colonoscopy when he was a young child related to his GERD symptoms. These were largely unremarkable but has been maintained on PPI therapy. Suggests he has been having loose stools but denies black or bloody stools. Rare NSAIDs Rare tobacco Rare ETOH He tells me he is to have HIDA scan today. Positive family history of gallbladder disease Denies family history of Crohn's or UC Utox: Opiates screen, Marijuana CTAP 2023: The lung bases are clear. Periportal edema, likely related to overhydration. The liver, spleen, gallbladder, pancreas, kidneys, and adrenal glands are within normal limits. Noninflamed appendix. There are a few scattered mid abdominal small bowel air-fluid levels. Mild colonic diverticulosis. No bowel wall thickening or obstruction. The pelvic organs are unremarkable. 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 No suspicious lytic or blastic osseous lesions. ABD US 2023: No significant abnormality identified within the right upper quadrant. CTAP 2023: The lung bases are clear. The liver, spleen, gallbladder, pancreas, kidneys, and adrenal glands are within normal limits. Noninflamed appendix. There are a few scattered mid abdominal small bowel air-fluid levels. Additional nondilated fluid-filled loops of large bowel are also noted. No bowel wall thickening or obstruction. The pelvic organs are unremarkable. 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 No suspicious lytic or blastic osseous lesions. Review of Systems Review of Systems: All other findings negative except as noted in HPI. Physical Exam Constitutional: WD/WN, vitals as above Respiratory: normal respiratory effort, lungs clear to auscultation Cardiovascular: Rate/Rhythm: regular rate and regular rhythm Gastrointestinal (Abdomen): normal bowel sounds, soft, nontender, no hepatosplenomegaly Skin: no rashes, warm and dry Results & Data Results & Data Vital Signs (Past 12 Hours) Vital Signs Temp Pulse Pulse Pulse Resp BP Pulse Ox 07/03/24 07:44 36.6 C 90 16 144/71 H 98 07/03/24 04:10 36.8 C 69 126/90 98 07/03/24 00:07 36.4 C L 53 L 20 147/86 H 97 07/02/24 22:07 58 L O2 Del Method 07/03/24 07:44 Room Air 07/03/24 04:10 Room Air 07/03/24 00:07 Room Air 07/02/24 22:07 Laboratory Results 07/03/24 07/02/24 07/02/24 Range/Units 05:57 Unknown 08:51 WBC 9.82 (4.8-10.8) K/ul RBC 5.39 (4.70-6.10) M/uL Hgb 16.1 (14.0-18.0) g/dl Hct 45.9 (42.0-52.0) % MCV 85.2 (80.0-100.0) fL MCH 29.9 (25.0-34.0) pg MCHC 35.1 (32.0-36.0) g/dL RDW Std Deviation 45.4 (36.4-46.3) fL RDW Coeff of Lucy 14.6 H (11.5-14.5) % Plt Count 291 (130-400) K/uL MPV 9.4 (9.4-12.4) fL Immature Gran % (Auto) 0.4 % Neut % (Auto) 62.9 % Lymph % (Auto) 24.2 % [place] % (Auto) 9.4 % Eos % (Auto) 2.7 % Baso % (Auto) 0.4 % Neut # (Auto) 6.17 (1.40-6.50) K/uL Lymph # (Auto) 2.38 (1.20-3.40) K/uL [place] # (Auto) 0.92 H (0.11-0.59) K/uL Eos # (Auto) 0.27 (0.00-0.50) K/uL Baso # (Auto) 0.04 (0.00-0.20) K/uL Immature Gran # (Auto) 0.04 (0.01-0.20) K/uL D-Dimer < 190 (0-500) ug/L FEU Sodium 137 (136-145) mmol/L Potassium 4.3 (3.5-5.1) mmol/L Chloride 107 (98-107) mmol/L Carbon Dioxide 25 (21-32) mmol/L Anion Gap 5 (3-11) BUN 16 (6-23) mg/dl Creatinine 1.08 (0.6-1.4) mg/dl Est Cr Clr Drug Dosing 105.1 ml/min eGFR 95.86 BUN/Creatinine Ratio 14.8 (10-20) Glucose 100 H (70-99(Fasting)) mg/dl Calcium 8.4 L (8.6-10.3) mg/dl Phosphorus 2.0 L (2.5-4.9) mg/dl Magnesium 2.1 (1.7-2.4) mg/dl Total Bilirubin 0.7 (0.2-1.0) mg/dl AST 20 (13-39) U/L ALT 18 (7-52) U/L Alkaline Phosphatase 45 (34-104) U/L Total Protein 6.4 (6.0-8.3) gm/dl Albumin 4.0 (3.4-5.0) gm/dl Globulin 2.4 L (2.5-4.0) gm/dl Albumin/Globulin Ratio 1.7 (0.9-2) Urine Color Yellow Urine Appearance Clear (Clear) Urine pH 6.0 (4.5-7.5) Ur Specific [place] 1.038 H (1.000-1.030) Urine Protein Trace H (Negative) Urine Glucose (UA) 2+ H (Negative) Urine Ketones 3+ H (Negative) Urine Blood Negative (Negative) Urine Nitrite Negative (Negative) Urine Bilirubin Negative (Negative) Urine Urobilinogen Negative (Negative) Ur Leukocyte Esterase Negative (Negative) Urine WBC (Auto) 0-5 (0-5) /hpf Urine RBC (Auto) 0-2 (0-2) /hpf U Hyaline Cast (Auto) 0-2 (0-2) /lpf U Epithel Cells (Auto) 0-2 (0-2) /hpf Urine Bacteria (Auto) None Seen (None Seen) Urine Opiates Screen Pos H (Neg) U Codeine Confrm GC/MS Pending Ur Morphine (GC/MS) Pending Ur Hydrocodone (GC/MS) Pending Ur Norhydrocodone Pending Ur Noroxycodone Pending Urine Oxycodone (GC/MS) Pending U Oxymorphone GC/MS Pending Ur Methadone, Qual Neg (Neg) Ur Hydromorphone (GC/MS) Pending Urine Fentanyl Screen Neg (Neg) Urine Barbiturates Neg (Neg) Ur Phencyclidine (PCP) Neg (Neg) U Amphetamin/Meth Scrn Neg (Neg) MDMA (Ecstasy) Screen Neg (Neg) U Benzodiazepines Scrn Neg (Neg) Ur Cocaine Metabolite Neg (Neg) U Marijuana (THC) Screen Pos H (Neg) U Marijuana THC Carboxy Pending Drug Screen Comment Pending PG Care Time/CCT Total # of Minutes Spent Total Time Spent with Patient: Total time spent is greater than 50% in coordination of care (as documented) at patient's floor/unit and/or counseling patient: Coding Level of Care Code 15752 SUB INP/OBS CARE 2/35MIN Diagnoses Abdominal pain, acute, epigastric R10.13
[2024-07-03] MEDS: ACETAMINOPHEN 1,000 MG/100 ML VIAL IV STA (11:46)
--- NOTE | 2024-07-03 13:33 | Nuclear Medicine Report ---
NUCLEAR MEDICINE HEPATOBILIARY SCAN CLINICAL HISTORY: Right-sided abdominal pain. COMPARISON: Right upper quadrant ultrasound July 01, 2024. CT of the abdomen and pelvis June 202023. TECHNIQUE: 5.3 mCi of technetium 99m Choletec IV was injected at 12:17 PM on July 03, 2024. Imme diately following injection, imaging of the abdomen was carried out for 60 minutes in the anterior pr ojection. FINDINGS: Hepatic uptake of radiotracer is prompt and homogeneous. Activity is identified within the gallbladder and common bile duct at 10 minutes. Small bowel activity is noted at 15 minutes. IMPRESSION: Normal hepatobiliary scan. No evidence for acute cholecystitis. ACT 112: Negative or not required by law. Electronically signed by: Tristen Rosario M.D. 07/03/2024 1:32 PM
--- NOTE | 2024-07-03 14:09 | History & Physical Bridge Note ---
Date of Service July 03, 2024 History & Physical Bridge Note I have examined the patient, reviewed the History & Physical and in the interval since the performance of the History & Physical I have noted the following changes of clinical significance: HIDA is negative. proceed with egd and colon in am.
[2024-07-03] MEDS: LAVAGE SOLUTION 4000ML PO SCH (18:28)
[2024-07-03] MEDS: HYDROmorphone INJ 0.5 MG/0.5 ML SYR IV STA (23:21)
[2024-07-04 06:26] LABS: Hematocrit (blood only) 45.5 % (42.0-52.0); Hemoglobin 15.6 g/dl (14.0-18.0); Mean Corpuscular Hemoglobin 29.3 pg (25.0-34.0); Mean Corpuscular Hgb Conc 34.3 g/dL (32.0-36.0); Mean Corpuscular Volume 85.4 fL (80.0-100.0); Mean Platelet Volume 9.4 fL (9.4-12.4); Platelet Count 286 K/uL (130-400); RDW Coefficient of Variation 14.5 % (11.5-14.5); RDW Standard Deviation 44.9 fL (36.4-46.3); Red Blood Count 5.33 M/uL (4.70-6.10); White Blood Count 11.05 K/ul (4.8-10.8)
[2024-07-04 06:39] LABS: BUN Creatinine Ratio 13.6 (10-20); Calcium 8.3 mg/dl (8.6-10.3); Creatinine Clr Calc Pharmacy 103.2 ml/min; Potassium 3.9 mmol/L (3.5-5.1)
[2024-07-04 07:51] LABS: Magnesium 2.1 mg/dl (1.7-2.4)
[2024-07-04 07:57] LABS: Phosphorus 2.1 mg/dl (2.5-4.9)
--- NOTE | 2024-07-04 09:18 | Gastroenterology Progress Note ---
<Statement entered by Lionel Ritter MD - 07/04/24 11:34> I personally saw and examined the patient. I have reviewed the chart and agree with the documentation provided by the CARTRIDGE MAKER including discussion about the assessment, treatment and plan. HIDA negative. plan for egd and colon today. Date of Service July 04, 2024 Assessment & Plan (1) Abdominal pain, acute, epigastric: Plan: 28 year old male who notes intermittent epigastric pain for a few months who is admitted w/ worsening epigastric pain, RUQ pain and some loose stools. CTAP, ABD US and HIDA largely unremarkable other than air fluid levels in small bowel and colon. Maintain NPO status for EGD/Colonoscopy today. Thank you for allowing us to participate in the care of this patient. Please call with any acute changes, questions or concerns. Please see addendum below with additional recommendation from my supervising physician. We appreciate assistance in the management of any serological abnormality and corrections to include: hemoglobin >7, INR <2, platelets >50,000, potassium levels >3.5 but <5.3, and sodium levels within 5 points of the reference range prior to endoscopic evaluation. Admission and Anticipated Discharge Date Admission Date: July 02, 2024 Subjective HIDA negative. Persistent pain. No nausea, vomiting. Tolerating bowel prep - reports clear liquid stools. No black or bloody bowel movements. Review of Systems Review of Systems: All other findings negative except as noted in HPI. Physical Exam Constitutional: WD/WN, vitals as above Respiratory: normal respiratory effort, lungs clear to auscultation Cardiovascular: Rate/Rhythm: regular rate and regular rhythm Gastrointestinal (Abdomen): normal bowel sounds, soft, nontender, no hepatosplenomegaly Skin: no rashes, warm and dry Results & Data Results & Data Vital Signs (Past 12 Hours) Vital Signs Temp Pulse Pulse Pulse Resp BP Pulse Ox 07/04/24 07:34 45 L 07/04/24 07:27 36.5 C 49 L 20 124/65 96 07/04/24 04:00 36.5 C 46 L 18 111/63 97 07/03/24 22:42 36.6 C 69 18 129/77 95 07/03/24 22:23 79 O2 Del Method 07/04/24 07:34 07/04/24 07:27 Room Air 07/04/24 04:00 Room Air 07/03/24 22:42 Room Air 07/03/24 22:23 Laboratory Results 07/04/24 07/02/24 Range/Units 05:22 04:36 WBC 11.05 H (4.8-10.8) K/ul RBC 5.33 (4.70-6.10) M/uL Hgb 15.6 (14.0-18.0) g/dl Hct 45.5 (42.0-52.0) % MCV 85.4 (80.0-100.0) fL MCH 29.3 (25.0-34.0) pg MCHC 34.3 (32.0-36.0) g/dL RDW Std Deviation 44.9 (36.4-46.3) fL RDW Coeff of Lucy 14.5 (11.5-14.5) % Plt Count 286 (130-400) K/uL MPV 9.4 (9.4-12.4) fL Sodium 138 (136-145) mmol/L Potassium 3.9 (3.5-5.1) mmol/L Chloride 106 (98-107) mmol/L Carbon Dioxide 27 (21-32) mmol/L Anion Gap 5 (3-11) BUN 15 (6-23) mg/dl Creatinine 1.10 (0.6-1.4) mg/dl Est Cr Clr Drug Dosing 103.2 ml/min eGFR 93.77 BUN/Creatinine Ratio 13.6 (10-20) Glucose 83 (70-99(Fasting)) mg/dl Calcium 8.3 L (8.6-10.3) mg/dl Phosphorus 2.1 L (2.5-4.9) mg/dl Magnesium 2.1 (1.7-2.4) mg/dl PG Care Time/CCT Total # of Minutes Spent Total Time Spent with Patient: Total time spent is greater than 50% in coordination of care (as documented) at patient's floor/unit and/or counseling patient: Coding Level of Care Code None Diagnoses Abdominal pain, acute, epigastric R10.13
[2024-07-04] MEDS: LORazepam 0.5 MG TAB PO STA (13:36)
[2024-07-04] MEDS ORDERED: MIDAZOLAM HCL 1 MG/ML 2ML VIAL ONE (14:27)
[2024-07-04] MEDS ORDERED: PROPOFOL IV EMULSION 10 MG/ML 20 ML VIAL IV ONE (14:32)
[2024-07-04] MEDS ORDERED: LIDOCAINE 2% 2 ML VIAL/AMP(20MG/ML) INFIL ONE (14:32)
[2024-07-04 14:38] VITALS: TEMP 98.6
--- NOTE | 2024-07-04 14:39 | Anesthesiology Consultation ---
Date of Service July 04, 2024 Assessment & Plan (1) Encounter for pre-operative examination: Chart Review Chart Review: Acceptable Risk for Surgery and Patient NOT seen in Pre Admission Testing Consults Requested none History Surgery Operation Date: 07/04/24 16:30 Proposed Procedures p Colonoscopy EGD Riya Ritter MD Height/Weight Height: 5 ft 10 in Weight: 86.1 kg Allergies Allergy/AdvReac Type Severity Reaction Status Date / Time bee venom protein (honey bee) Allergy Severe Anaphylaxis Verified 07/04/24 14:33 latex Allergy Intermediate Hives Verified 07/04/24 14:33 Penicillins AdvReac Unknown Hives Verified 07/04/24 14:33 Medications Home Medications Medication Instructions Recorded Confirmed Last Taken dexmethylphenidate 30 mg 30 mg PO DAILY 07/02/24 07/02/24 Unknown capsule,extended release -01 omeprazole 20 mg capsule,delayed 20 mg PO DAILY 07/02/24 07/02/24 Unknown release oxandrolone 2.5 mg tablet 2.5 mg PO UD 07/02/24 07/02/24 Unknown testosterone cypionate 50 mg/mL 50 mg IM UD 07/02/24 07/02/24 Unknown intramuscular oil Active Medications Generic Name Dose Route Start Last Admin Trade Name Freq PRN Reason Stop Dose Admin Piperacillin Sod/Tazobactam Sod 4.5 gm in 100 mls @ 25 mls/hr 07/02/24 13:00 07/04/24 09:13 Zosyn IV 07/12/24 12:59 Infused Q8H IFTIKHAR Infusion Protocol Ketorolac Tromethamine 30 mg 07/02/24 14:44 07/04/24 03:22 Ketorolac 30 Mg/Ml Vial IV 07/07/24 14:43 30 mg Q6H PRN Administration Moderate Pain (Scale 4, 5, 6) Miscellaneous 1 each 07/02/24 09:15 07/04/24 08:21 Do Not Tube~ Dexmethylphenidate~ Order Awaiting Action N/A 08/01/24 09:14 Not Given QS IFTIKHAR Polyethylene Glycol 17 gm 07/02/24 11:45 07/04/24 08:22 Polyethylene (Miralax) 17 Gm Pack PO 08/01/24 11:44 Not Given DAILY IFTIKHAR NPO Date Last Intake of Fluids: 07/04/24 Last Intake of Fluids Comment: Pt agitated with waiting-unable to answer time last fluids Social History Smoking Status: Never smoker Do You Dip or Chew Tobacco: No Hx Alcohol Use: No alcohol intake frequency: holidays/special occasions only Hx Substance Use: Yes substance use type: marijuana Substance Use Type Other:: Testosterone shots. Last Used Substance: Days (ago) Physical Exam Vital Signs Last Vital Signs Temp 98.6 F 07/04/24 14:26 Pulse 50 L 07/04/24 14:26 Resp 16 07/04/24 14:26 BP 150/86 H 07/04/24 14:26 Pulse Ox 96 07/04/24 14:26 O2 Del Method Room Air 07/04/24 14:26 Testing Laboratory Results 07/04/24 05:22 07/04/24 05:22 Urine Color Yellow 07/02/24 Unknown Urine Appearance Clear (Clear) 07/02/24 Unknown Urine pH 6.0 (4.5-7.5) 07/02/24 Unknown Ur Specific [place] 1.038 (1.000-1.030) H 07/02/24 Unknown Urine Protein Trace (Negative) H 07/02/24 Unknown Urine Glucose (UA) 2+ (Negative) H 07/02/24 Unknown Urine Ketones 3+ (Negative) H 07/02/24 Unknown Urine Nitrite Negative (Negative) 07/02/24 Unknown Ur Leukocyte Esterase Negative (Negative) 07/02/24 Unknown Urine WBC (Auto) 0-5 /hpf (0-5) 07/02/24 Unknown Urine RBC (Auto) 0-2 /hpf (0-2) 07/02/24 Unknown U Hyaline Cast (Auto) 0-2 /lpf (0-2) 07/02/24 Unknown U Epithel Cells (Auto) 0-2 /hpf (0-2) 07/02/24 Unknown Urine Bacteria (Auto) None Seen (None Seen) 07/02/24 Unknown
[2024-07-04] MEDS: SODIUM CHLORIDE 0.9% 500 ML IV SCH (14:51)
--- NOTE | 2024-07-04 15:17 | GI REPORT ---
[facility] Patient: JALEN EUGENE : 1995 Sex at : Male Age: 28 Years Procedure: Colonoscopy Date: 07/04/2024 Attending Physician: Lionel Ritter MD Referring MD: Referred Self Indications: - Generalized abdominal pain Medications: - Monitored Anesthesia Care Complications: - No immediate complications. Estimated Blood Loss: - Estimated blood loss: None. Procedure: - Prior to the procedure, a History and Physical was performed, and patient medications and allergies were reviewed. The patient's tolerance of previous anesthesia was also reviewed. The risks and benefits of the procedure and the sedation options and risks were discussed with the patient. All questions were answered, and informed consent was obtained. Prior Anticoagulants: The patient has taken no anticoagulant or antiplatelet agents. ASA Grade Assessment: III - A patient with severe systemic disease. After reviewing the risks and benefits, the patient was deemed in satisfactory condition to undergo the procedure. - The pediatric colonoscope was introduced through the anus and advanced to the terminal ileum, with identification of the appendiceal orifice and ileocecal valve. - The colonoscopy was performed without difficulty. - The patient tolerated the procedure well. - The quality of the bowel preparation was good. - The terminal ileum, ileocecal valve, appendiceal orifice, and rectum were photographed. Findings: - The terminal ileum appeared normal. - The exam was otherwise without abnormality on direct and retroflexion views. Impression: - The examined portion of the ileum was normal. - The examination was otherwise normal on direct and retroflexion views. - No specimens collected. Recommendation: - Discharge patient to home (ambulatory). - Resume previous diet. - Continue present medications. - Repeat colonoscopy at age 45 for screening purposes. - Return to referring physician as previously scheduled. - Patient has a contact number available for emergencies. The signs and symptoms of potential delayed complications were discussed with the patient. Return to normal activities tomorrow. Written discharge instructions were provided to the patient. Procedure Code(s): - 38436, Colonoscopy, flexible; diagnostic, including collection of specimen(s) by brushing or washing, when performed (separate procedure) Diagnosis Code(s): - R10.84, Generalized abdominal pain CPT(R) - 2022 copyright [employer]. All Rights Reserved. The CPT codes, CCI edits and ICD codes generated are intended as suggestions and were generated based on input data. These codes are preliminary and upon coin teller review may be revised to meet current compliance and payer requirements. The provider is responsible for the final determination of appropriate codes, and modifiers. Lionel Ritter MD This document has been electronically signed. Note Initiated:07/04/2024 Note Completed:07/04/2024 3:16 PM \\[email or web address]\Results\[email or web address]\[id number]
--- NOTE | 2024-07-04 15:20 | GI REPORT ---
[facility] Patient: JALEN EUGENE : 1995 Sex at : Male Age: 28 Years Procedure: Upper GI endoscopy Date: 07/04/2024 Attending Physician: Lionel Ritter MD Referring MD: Referred Self Indications: - Epigastric abdominal pain Medications: - Monitored Anesthesia Care Complications: - No immediate complications. Estimated Blood Loss: - Estimated blood loss was minimal. Procedure: - Prior to the procedure, a History and Physical was performed, and patient medications and allergies were reviewed. The patient's tolerance of previous anesthesia was also reviewed. The risks and benefits of the procedure and the sedation options and risks were discussed with the patient. All questions were answered, and informed consent was obtained. Prior Anticoagulants: The patient has taken no anticoagulant or antiplatelet agents. ASA Grade Assessment: III - A patient with severe systemic disease. After reviewing the risks and benefits, the patient was deemed in satisfactory condition to undergo the procedure. - The pediatric colonoscope was introduced through the mouth and advanced to the third part of the duodenum. - The upper GI endoscopy was accomplished without difficulty. - The patient tolerated the procedure well. Findings: - The examined esophagus was normal. - Patchy mild inflammation characterized by erythema was found in the gastric body. Biopsies were taken with a cold forceps for Helicobacter pylori testing. Estimated blood loss was minimal. - The examined duodenum was normal. Biopsies for histology were taken with a cold forceps for evaluation of celiac disease. Estimated blood loss was minimal. Impression: - Normal esophagus. - Acute gastritis, characterized by erythema. Biopsied. - Normal examined duodenum. Biopsied. Recommendation: - Discharge patient to home (ambulatory). - Resume previous diet. - Continue present medications. - Await pathology results. - Return to primary care physician as previously scheduled. - Patient has a contact number available for emergencies. The signs and symptoms of potential delayed complications were discussed with the patient. Return to normal activities tomorrow. Written discharge instructions were provided to the patient. - Use Protonix (pantoprazole) 40 mg PO daily. Procedure Code(s): - 08446, Esophagogastroduodenoscopy, flexible, transoral; with biopsy, single or multiple Diagnosis Code(s): - R10.13, Epigastric pain - K29.00, Acute gastritis without bleeding CPT(R) - 2022 copyright [employer]. All Rights Reserved. The CPT codes, CCI edits and ICD codes generated are intended as suggestions and were generated based on input data. These codes are preliminary and upon data analysis intern review may be revised to meet current compliance and payer requirements. The provider is responsible for the final determination of appropriate codes, and modifiers. Lionel Ritter MD This document has been electronically signed. Note Initiated:07/04/2024 Note Completed:07/04/2024 3:18 PM \\[email or web address]\Data\Provation\Results\[email or web address]\[id number]
--- NOTE | 2024-07-04 15:22 | History & Physical Bridge Note ---
Date of Service July 04, 2024 History & Physical Bridge Note I have examined the patient, reviewed the History & Physical and in the interval since the performance of the History & Physical I have noted the following changes of clinical significance: EGD: mild gastritis in body. Biopsies done. Duodenum normal but biopsies done for celiac Colon: normal colon and terminal ileum. I suspect he has functional abdominal pain that is made worse by his chronic marijuana use. At this point I would offer supportive care with Levsin, stopping all marijuana products, fiber in his diet, and PPI once daily. If his pain persists, he would be a good candidate for outpatient Elavil starting at 10 mg nightly and escalating to 30 mg - 40 mg po qhs.
[2024-07-04 15:33] VITALS: RESP 14
[2024-07-04 15:58] VITALS: O2SAT 98
--- NOTE | 2024-07-04 16:36 | Discharge Summary ---
Date of Service July 04, 2024 Admission HPI Per Admitting Provider 28-year-old male with past medical history significant for GERD, slow transit constipation, attention deficit hyperactivity disorder presents with abdominal pain. Pain is located in the right side of his abdomen. Denies any nausea. Normal bowel movements. Micturating okay. No fevers. No chest pain or shortness of breath, no headache. No runny nose or sore throat or cough. Patient was in the ER yesterday with epigastric abdominal pain and was admitted. CT abdomen pelvis was okay. Gallbladder ultrasound showed no signs of acute cholecystitis. Seen by surgery and recommended HIDA scan. GI was also con sulted. But patient wanted to eat and signed out AMA. Patient said at home ate banana and yogurt. Around 11 PM started to have severe abdomen pain again and came to the ER. Patient states he smokes marijuana daily. He is taking testosterone seems for last 4 months and Anavar for last 2 weeks which are not prescribed and he is getting them on his own. An APCT was performed without a bowel obstruction or bowel wall thickening and a normal appendix. A HIDA scan was performed on 07/03 and was a normal hepatobiliary scan. No evidence for acute cholecystitis. An EGD/colonoscopy was performed today and revealed acute gastritis with a normal duodenum. Patient will be started on Protonix 40 mg PO daily and will consider Elavil if his pain persists. Patient was discharged home in no apparent distress. Admission Exam Per Admitting Provider General- Not in acute distress Head- atraumatic Eyes- PERRL. ENT- oropharynx clear Neck- supple, no JVD. Lungs- clear to auscultation no wheezing or crackles Heart- regular rate and rhythm; no murmur, no gallop. Abdomen- normal bowel sounds, soft, tenderness in right side of abdomen with mild guarding, no distension Extremities- no pretibial edema, no erythema seen Neuro- alert, oriented PERRL, no facial palsy; no dysarthria; moves extremities Principal Diagnosis acute gastritis Discharge Exam Neuro: AAOx4, PERRLA, no aphagia, memory changes, CNII-XII grossly intact HEENT: head normocephalic, moist mucus membranes CV: S1/S2, (-) M/G/R, (-) edema, cap refill < 3 seconds Resp: Lungs CTA in all tang. On RA GI: Abdomen S/NT/ND, Ax4 bowel sounds, (-) CVA tenderness Musculoskeletal: 5/5 B/L UE strength, 5/5 B/L LE strength. No gait disturbance Skin: (-) rashes , (-) erythema. Psych: euthymic mood Discharge Data Allergies Allergy/AdvReac Type Severity Reaction Status Date / Time bee venom protein (honey bee) Allergy Severe Anaphylaxis Verified 07/04/24 14:33 latex Allergy Intermediate Hives Verified 07/04/24 14:33 Penicillins AdvReac Unknown Hives Verified 07/04/24 14:33 Consultations 07/02/24 04:42 ED Decision to Admit Stat 07/02/24 08:40 Consult Gastroenterology Routine Procedures Performed Operation Date: 07/04/24 16:30 Actual Procedures p EGD Biopsy Cytology - Lionel Ritter MD s Colonoscopy - Lionel Ritter MD Ordered Studies 07/02/24 08:20 CT Abd and Pelvis [CT abd pelvis oral and IV con] Stat Hospital Course (1) Right sided abdominal pain: 28-year-old male with past medical history significant for GERD, slow transit constipation, attention deficit hyperactivity disorder presents with abdominal pain. Pain is located in the right side of his abdomen. Denies any nausea. Normal bowel movements. Micturating okay. No fevers. No chest pain or shortness of breath, no headache. No runny nose or sore throat or cough. Patient was in the ER yesterday with epigastric abdominal pain and was admitted. CT abdomen pelvis was okay. Gallbladder ultrasound showed no signs of acute cholecystitis. Seen by surgery and recommended HIDA scan. GI was also consulted. But patient wanted to eat and signed out AMA. Patient said at home ate banana and yogurt. Around 11 PM started to have severe abdomen pain again and came to the ER. Patient states he smokes marijuana daily. He is taking testosterone seems for last 4 months and Anavar for last 2 weeks which are not prescribed and he is getting them on his own. Right-sided abdominal pain Acute CTAP and GB US done yesterday were unremarkable LFTs and lipase normal IV Protonix; takes PO Prilosec chronically HIDA scan results from today: Normal hepatobiliary scan. No evidence for acute cholecystitis. Will DC IV Fluids and will order clear liquid diet until MN Pain control; DC IV Dilaudid. Continue IV Toradol PRN and IV Tylenol x1 prior to HIDA scan GI consult; appreciate recommendations . NPO after MN for possibility of EGD/C- scope on 07/04 Bradycardia Monitor med/daily D-Dimer normal ECHO EF 55-60%, no significant valve disease, LV function normal. Resolved; HR 70-90 this AM Attention deficit hyperactivity disorder On dexmethylphenidate; continue Disposition: PCP: Dr. North DVT prophylaxis: SCDs for now Med/telemetry Code Stable: Full code I spent a total of 58 minutes coordinating, documenting, and providing care for this patient excluding time spent in the performance of separately billed services. All of the aforementioned completed while collaborating with the assigned attending physician for a full treatment plan. Please see their addendum for further details. Total Time Total Time Spent Total Time Spent (In Minutes): I spent a total of 58 minutes coordinating, documenting, and providing care for this patient excluding time spent in the performance of separately billed services. All of the aforementioned completed while collaborating with the assigned attending physician for a full treatment plan. Please see their addendum for further details. Discharge Plan Discharge Items Patient Disposition: Home - Self-Care Reason For Visit: ABDOMINAL PAIN, BRADYCARDIA Discharge Diagnosis: acute gastritis Activity: Resume your previous activity Non-emergency contact: Primary Care Provider Call non-emergency contact if: your symptoms worsen, your pain is worsening and your temperature is above 101 Follow-up/Referrals: Antonio Ng MD [Primary Care Provider] - (Date & Time 07/11/2024 1:40 PM Provider Taqueria North MD [facility] ) Diet: Low Fiber Addtl Attending Provider Instructions: You presented to the emergency room with abdominal pain and epigastric pain. You had a CT scan that was suggestive of acute enteritis without any evidence of bowel wall inflammation. A HIDA scan was performed and negative for gallbladder concerns. An EGD and colonoscopy was performed today and results indicate acute gastritis. Biopsies were taken and results will be shared with your PCP. Your GI doctor recommended that you take Protonix 40 mg by mouth daily. It is recommended that you abstain from marijuana use as this can exacerbate your symptoms. If your pain persists as discussed, you could consider starting Elavil which can be discussed as well with your PCP. RECOMMENDATIONS FOR FOLLOW-UP: Your follow up PCP appointment is planned for 07/11 @ 1:[address] North. OTHER INSTRUCTIONS: Seek medical attention if you have: * temperature above 101 * chest pain or trouble breathing * abdominal pain, nausea, vomiting * diarrhea, dark stools or bloody stools * any unanswered questions or concerns Call 911 if symptoms are severe. Please take good care of yourself. It has been a pleasure taking care of you. Please take care of yourself. If you have any questions regarding your recent hospitalization please contact [facility] and request [facility]ola Segura[facility] @ [phone]. Pending Studies at Discharge: Yes Studies:: Biopsies from EGD obtained and pending. Will be sent to the PCP Stand-Alone Forms: My [facility], Smoking Cessation Medications and DC Order Prescriptions: New pantoprazole [Protonix] 40 mg tablet,delayed release (DR/EC) 40 mg PO DAILY Qty: 30 0RF Continued dexmethylphenidate 30 mg capsule,ER biphasic 50-50 30 mg PO DAILY testosterone cypionate 50 mg/mL Oil 50 mg IM UD Rx Instructions: patient taking on his own. No prescription oxandrolone 2.5 mg Tablet 2.5 mg PO UD Rx Instructions: Patient taking on his own. No prescription Discontinued omeprazole [Prilosec] 20 mg Capsule,Delayed Release(Dr/Ec) 20 mg PO DAILY Discharge Orders: Discharge Order (Routine); Ordered 07/04/24 Ordered By: Marya Coffman Admission Data Admit Date/Time: 07/02/24 05:39 Attending Provider: Germania Farrell Admit Provider: Stevan Calle Primary Care Provider: Antonio Ng Other Providers: Stevan Calle; Sly Soni Other Interventions: Discharge Summary Assessment (RN) Last Done: 07/04/24 16:42 Supervising Physician Co-Signing Physician Notes I have seen and discussed the case with the collaborating advanced practitioner. I agree with the above PN. I have reviewed and confirmed the patients medical history, the findings on physical examination, and the patients diagnosis and treatment plan with Augustus LOPEZ and agree with the information documented. EGD revealed gastritis, otherwise all other imaging/tests negative. I spent a total of 10 minutes coordinating, documenting, and providing care for this patient excluding time spent in the performance of separately billed services. All of the aforementioned completed outside of collaborating with the assigned advanced practitioner for a full treatment plan. I have reviewed the advanced practitioner's documentation, and I agree with, and take responsibility for the plan of care
[2024-07-04 16:43] VITALS: BP 145/66; PULSE 69
--- NOTE | 2024-07-04 17:15 | Anesthesiology Progress Note ---
Date of Service July 04, 2024 Anesthesia Post Procedure Vital Signs Vital Signs: Temp Pulse Pulse Pulse Pulse Resp BP 07/04/24 16:42 37.0 C 69 46 L 65 14 114/81 07/04/24 15:48 65 14 114/81 07/04/24 15:33 65 14 120/64 07/04/24 15:18 70 12 108/59 L 07/04/24 14:26 37.0 C 50 L 16 150/86 H 07/04/24 10:57 65 20 147/67 H 07/04/24 07:34 45 L 07/04/24 07:27 36.5 C 49 L 20 124/65 07/04/24 04:00 36.5 C 46 L 18 111/63 07/03/24 22:42 36.6 C 69 18 129/77 07/03/24 22:23 79 07/03/24 19:00 36.6 C 71 18 133/76 BP Pulse Ox O2 Del Method 07/04/24 16:42 145/66 H 98 07/04/24 15:48 98 Room Air 07/04/24 15:33 99 Room Air 07/04/24 15:18 99 Room Air 07/04/24 14:26 96 Room Air 07/04/24 10:57 99 Room Air 07/04/24 07:34 07/04/24 07:27 96 Room Air 07/04/24 04:00 97 Room Air 07/03/24 22:42 95 Room Air 07/03/24 22:23 07/03/24 19:00 97 Room Air Pain Intensity Abdomen: Pain Intensity: 2 Transfer of Care Handoff Completed per policy Notes Mental Status: alert / awake / arousable Patient Amnestic to Procedure: Yes Nausea / Vomiting: adequately controlled Pain: adequately controlled Airway Patency, RR, SpO2: stable & adequate BP & HR: stable & adequate Hydration State: stable & adequate Anesthetic Complications: no major complications apparent and Pt Satisfied with anesthetic care
[2024-07-05] MEDS ORDERED: PANTOprazole 40 MG in SYRINGE DAILY IV SCH (09:00)
[2024-07-06 01:13] LABS: Codeine Urine NEGATIVE ng/mL (<50); Hydrocodone Urine NEGATIVE ng/mL (<50); Hydromor Urine 1610 ng/mL (<50); Marijuana Quant, GCMS Urine >5000 ng/mL (<5); Morphine Urine 2300 ng/mL (<50); Norhydrocodone Conf Ur NEGATIVE ng/mL (<50); Noroxycodone Urine NEGATIVE ng/mL (<50); Oxycodone Urine NEGATIVE ng/mL (<50); Oxymorph Urine NEGATIVE ng/mL (<50)
== END 2024-07-04 17:11 | disposition home or self-care (01) | DRG 392 ==
LOC: ED 03:33 → 2N 05:39